=== PATIENT | male | born 1955 | race Caucasian/White ===

== ENCOUNTER 2022-10-31 22:29 | Emergency (ER) | payer OTHER, MEDICAID ==
[~2022-10-31] VITALS: Ht 167.6 cm; Wt 81.6 kg
[2022-10-31 22:51] VITALS: BP_SYST 130
--- NOTE | 2022-10-31 22:51 | NUR ---
Placed in room 07 . Placed on groundwater monitoring technician, blood pressure machine and pulse oximeter. To gown for exam. Side rails up. Report given to Dona MURRELL.
--- NOTE | 2022-10-31 22:52 | NUR ---
DR MELENDEZ AT BEDSIDE FOR EVALUATION
--- NOTE | 2022-10-31 22:55 | NUR ---
LABS DRAWN BY HEAVY DUTY MECHANIC
[2022-10-31 23:08] LABS: BASOPHILS # (AUTO) 0.1 K/uL (0.0-0.2); BASOPHILS % (AUTO) 0.6 % (0.0-2.0); EOSINOPHILS # (AUTO) 0.6 K/uL (0.0-0.4); EOSINOPHILS % (AUTO) 5.9 % (0.0-4.0); HEMATOCRIT 36.1 % (36-54); HEMOGLOBIN 11.9 g/dL (14.0-18.0); LYMPHOCYTES # (AUTO) 2.2 K/uL (1.0-5.5); LYMPHOCYTES % (AUTO) 22.2 % (20.5-51.5); MEAN CORPUSCULAR HEMOGLOBIN 31 pg (27-31); MEAN CORPUSCULAR HGB CONC 33 % (32-36); MEAN CORPUSCULAR VOLUME 94 fL (79.0-98.0); MONOCYTES # (AUTO) 0.8 K/uL (0.0-1.0); MONOCYTES % (AUTO) 8.1 % (1.7-9.3); NEUTROPHILS # (AUTO) 6.3 K/uL (1.8-7.7); NEUTROPHILS % (AUTO) 63.2 % (40.0-70.0); PLATELET COUNT (AUTO) 168 K/uL (130-430); RED BLOOD CELL COUNT(AUTO) 3.83 MIL/uL (4.2-6.2); RED CELL DISTRIBUTION WIDTH 18.1 % (9.0-15.0)
[2022-10-31 23:23] LABS: CALCIUM 9.7 mg/dL (8.4-11.0); CREATININE 0.88 mg/dL (0.55-1.30)
[2022-10-31 23:29] LABS: ALBUMIN 2.9 g/dL (3.4-4.8); PHOSPHORUS 4.6 mg/dL (2.7-4.5); TOTAL BILIRUBIN 0.7 mg/dL (0.0-1.0)
--- NOTE | 2022-10-31 23:30 | NUR ---
PT HERE FOR RE-CHECK OF HIS POTASSIUM LEVEL.
--- NOTE | 2022-11-01 02:33 | NUR ---
REPORT GIVEN TO LI AT [facility]
--- NOTE | 2022-11-01 03:34 | NUR ---
Patient given written and verbal discharge instructions and verbalizes understanding. ER MD discussed with patient the results and treatment provided. Patient in stable condition. ID arm band removed. Rx of Omeprazole given. Patient educated on pain management and to follow up with PMD. Pain Scale 2/10. Opportunity for questions provided and answered. Medication side effect fact sheet provided.
[2022-11-01 04:27] VITALS: BP_SYST 155
== END 2022-11-01 03:34 ==
LOC: SED 22:29
DX: R79.9 Abnormal finding of blood chemistry, unspecified (principal); F72 Severe intellectual disabilities; I11.0 Hypertensive heart disease with heart failure; I50.9 Heart failure, unspecified; K21.9 Gastro-esophageal reflux disease without esophagitis; E83.42 Hypomagnesemia; E83.39 Other disorders of phosphorus metabolism; E87.1 Hypo-osmolality and hyponatremia; Z93.0 Tracheostomy status; Z79.899 Other long term (current) drug therapy
CPT/HCPCS: 36415; 80053; 83735; 84100; 85025; 99283

== ENCOUNTER 2022-11-12 00:46 | Inpatient (IN) | payer OTHER, MEDICAID ==
[2022-11-12] VITALS (22 sets, daily range): BP systolic 81–128
[~2022-11-12] VITALS: Ht 167.6 cm; Wt 81.6 kg
[2022-11-12] MEDS ORDERED: NS 1000 ML IV.SOLN IV ONE (01:00)
[2022-11-12] MEDS ORDERED: PIPERACILLIN/TAZOBACTAM 3.375 GM/VIAL (ZOSYN) IV ONE ×2 (01:10→05:15)
[2022-11-12] MEDS ORDERED: VANCOMYCIN HCL 1,000 MG in NS 250 ML IV SCH ×2 (01:15→11:00)
[2022-11-12] MEDS ORDERED: PIPERACILLIN/TAZO 3.375 GM in NS 50 ML IV ONE (01:15)
[2022-11-12] MEDS ORDERED: VANCOMYCIN HCL 1000 MG/VIAL IV ONE (01:25)
[2022-11-12 01:28] LABS: BILIRUBIN,URINE NEGATIVE (NEGATIVE); BLOOD, URINE 3+ (NEGATIVE); CLARITY/URINE SL CLOUDY (CLEAR); COLOR,URINE YELLOW (YELLOW); GLUCOSE,URINE NEGATIVE (NEGATIVE); KETONES,URINE NEGATIVE (NEGATIVE); LEUKOCYTE ESTERASE ,URINE 2+ (NEGATIVE); NITRITE, URINE NEGATIVE (NEGATIVE); PH,URINE 8.5 (5.0-8.0); PROTEIN URINE 1+ (NEGATIVE); UROBILINOGEN,URINE 0.2 (0.2-1.0)
[2022-11-12 01:32] LABS: BASOPHILS % (AUTO) 0.2 % (0.0-2.0); EOSINOPHILS # (AUTO) 0.5 K/uL (0.0-0.4); EOSINOPHILS % (AUTO) 3.5 % (0.0-4.0); HEMATOCRIT 36.4 % (36-54); HEMOGLOBIN 11.8 g/dL (14.0-18.0); LYMPHOCYTES # (AUTO) 0.5 K/uL (1.0-5.5); MEAN CORPUSCULAR HEMOGLOBIN 30 pg (27-31); MEAN CORPUSCULAR HGB CONC 33 % (32-36); MEAN CORPUSCULAR VOLUME 91 fL (79.0-98.0); MONOCYTES # (AUTO) 0.1 K/uL (0.0-1.0); MONOCYTES % (AUTO) 0.6 % (1.7-9.3); NEUTROPHILS # (AUTO) 11.7 K/uL (1.8-7.7); NEUTROPHILS % (AUTO) 91.7 % (40.0-70.0); PLATELET COUNT (AUTO) 259 K/uL (130-430); RED CELL DISTRIBUTION WIDTH 17.1 % (9.0-15.0); WHITE BLOOD COUNT (AUTO) 12.8 K/uL (4.8-10.8)
[2022-11-12 01:42] LABS: ANION GAP 13 (5-15); CALCIUM 10.1 mg/dL (8.4-11.0); CHLORIDE 99 mmol/L (98-107); CREATININE 0.83 mg/dL (0.55-1.30); GLUCOSE 167 mg/dL (70-99); UREA NITROGEN, BLOOD 31 mg/dL (8-21)
[2022-11-12 01:43] LABS: BACTERIA,URINE MANY /HPF (None Seen); RBC,URINE 80-100 /HPF (0-3); TRIPLE PHOSPHATE CRYSTAL,UR 0-10 /HPF (None Seen)
[2022-11-12 01:46] LABS: GFR AFRICAN AMERICAN 120 mL/min (>90)
[2022-11-12 01:48] LABS: ALANINE AMINOTRANSFERASE 112 U/L (12-78); ALBUMIN 2.9 g/dL (3.4-4.8); ASPARTATE AMINOTRANSFERASE 170 U/L (10-37); TOTAL BILIRUBIN 0.7 mg/dL (0.0-1.0)
[2022-11-12] MEDS ORDERED: NS 250 ML IV ONE (02:15)
[2022-11-12] MEDS ORDERED: dilTIAZem HCL IVP 5 MG/ML VIAL IVP ONE (02:15)
[2022-11-12] MEDS ORDERED: dilTIAZem HCL IVP 5 MG/ML VIAL ONE (02:19)
[2022-11-12] MEDS ORDERED: ARGI1POW13 GT (02:43)
[2022-11-12] MEDS ORDERED: RIVA10TA GT (02:43)
[2022-11-12] MEDS ORDERED: FAMO20TA8 GT (02:43)
[2022-11-12] MEDS ORDERED: ALBU2.5V7 INH (02:43)
[2022-11-12] MEDS ORDERED: MULT-1117 GT (02:43)
[2022-11-12] MEDS ORDERED: LIP20 GT (02:43)
[2022-11-12] MEDS ORDERED: CHLO473M5 PO (02:43)
[2022-11-12] MEDS ORDERED: LISI20TA30 GT (02:43)
[2022-11-12] MEDS ORDERED: ERGO50CA GT (02:43)
[2022-11-12] MEDS ORDERED: TYLL650 GT (02:43)
[2022-11-12] MEDS ORDERED: INSU100V7 SUBCUT (02:43)
[2022-11-12] MEDS ORDERED: INSU100V11 SQ (02:43)
[2022-11-12] MEDS ORDERED: METO-290 GT (02:43)
[2022-11-12] MEDS ORDERED: MIDO10TA GT (02:43)
[2022-11-12] MEDS ORDERED: CRAN450T9 GT (02:43)
[2022-11-12] MEDS ORDERED: ASCO500S10 GT (02:43)
[2022-11-12] MEDS ORDERED: DOCU-144 GT (02:43)
[2022-11-12] MEDS ORDERED: FER300L GT (02:43)
[2022-11-12] MEDS ORDERED: LEVE1000 PO (02:43)
[2022-11-12] MEDS ORDERED: LANS30CA53 GT (02:43)
[2022-11-12] MEDS ORDERED: BISA-79 RC (02:43)
[2022-11-12] MEDS ORDERED: LEVE1000 GT (02:43)
[2022-11-12] MEDS ORDERED: NOREPINEPHRINE 4 MG/4 ML VIAL IV ONE ×2 (04:51→07:42)
[2022-11-12] MEDS ORDERED: PIPERACILLIN/TAZO 3.375/DEX-IS 50 ML IV SCH (06:00)
[2022-11-12] MEDS: NACL 0.9% 1,000 ML IV SCH ×3 (06:13→18:50)
[2022-11-12] MEDS: NOREPINEPHRINE BITARTRATE 4 MG in NS 246 ML IV PRN ×2 (06:19→12:48)
[2022-11-12] MEDS ORDERED: COMMUNICATION ORDER XX ONE (08:15)
[2022-11-12] MEDS: ACETAMINOPHEN 650 MG/20.3 ML UDC GT PRN ×2 (09:09→14:32)
[2022-11-12] MEDS ORDERED: LINEZOLID 300 ML IV ONE (10:15)
[2022-11-12] MEDS ORDERED: DIGOXIN 0.5 MG/2 ML AMP IVP ONE (11:00)
[2022-11-12] MEDS ORDERED: DIGOXIN 0.5 MG/2 ML AMP ONE (11:02)
[2022-11-12] MEDS ORDERED: BISACODYL 5 MG TABLET.DR (DULCOLAX) GT PRN (13:15)
[2022-11-12] MEDS ORDERED: ACETAMINOPHEN 650 MG/20.3 ML UDC GT SCH (13:15)
[2022-11-12] MEDS ORDERED: NOREPINEPHRINE BITARTRATE 8 MG in NS 246 ML IV PRN (13:15)
[2022-11-12] MEDS ORDERED: DOCUSATE SODIUM 100 MG CAPSULE PO PRN (13:15)
[2022-11-12] MEDS ORDERED: ALBUTEROL SULFATE 0.083% 2.5 MG/3 ML VIAL.NEB INH PRN (13:15)
[2022-11-12] MEDS: METOCLOPRAMIDE HCL 10 MG TABLET GT SCH ×2 (14:33→21:05)
[2022-11-12] MEDS: MEROPENEM 1 GM IVPB PREMIX 50 ML IV SCH ×2 (14:52→22:03)
[2022-11-12] MEDS ORDERED: DIGOXIN 0.5 MG/2 ML AMP IVP PRN (15:00)
[2022-11-12] MEDS: MIDODRINE HCL 5 MG TABLET (PROAMATINE) GT SCH ×2 (15:13→21:05)
[2022-11-12 15:21] LABS: INR 1.3 (0.80-1.20); PROTHROMBIN TIME 12.8 SECS (9.5-12.5)
[2022-11-12] MEDS: ALBUMIN HUMAN 25% 50 ML IV SCH ×2 (17:06→21:07)
[2022-11-12] MEDS ORDERED: NON-FORMULARY MEDICATION (Arginine/Ascorbate Sod/Vite AC (Arginaid Powder) 1 EACH) GT SCH (21:00)
[2022-11-12] MEDS ORDERED: NON-FORMULARY MEDICATION (Cranberry Fruit (Cranberry) 425 MG) GT SCH (21:00)
[2022-11-12] MEDS: INSULIN GLARGINE 100 UNITS/ML, 10 ML VIAL SUBCUT SCH (21:00)
[2022-11-12] MEDS: levETIRAcetam 500 MG TABLET GT SCH (21:05)
[2022-11-12] MEDS: FERROUS SULFATE 300 MG/5 ML UDC GT SCH (21:06)
[2022-11-12] MEDS: ATORVASTATIN 20 MG TABLET GT SCH (21:06)
[2022-11-12] MEDS: HYDROCORTISONE SOD SUCC 100 MG/2 ML VIAL IVP SCH (21:06)
[2022-11-12] MEDS: CHLORHEXIDINE GLUC 0.12% 15 ML MOUTHWASH UDC MM SCH (21:06)
[2022-11-12] MEDS: FAMOTIDINE 20 MG TABLET GT SCH (21:06)
[2022-11-12] MEDS: LINEZOLID 300 ML IV SCH (21:08)
[2022-11-13] VITALS (27 sets, daily range): BP systolic 90–135
[2022-11-13] MEDS: ALBUMIN HUMAN 25% 50 ML IV SCH (03:11)
[2022-11-13] MEDS: NACL 0.9% 1,000 ML IV SCH ×3 (03:11→15:18)
[2022-11-13] MEDS: HYDROCORTISONE SOD SUCC 100 MG/2 ML VIAL IVP SCH ×3 (05:16→21:33)
[2022-11-13] MEDS: MEROPENEM 1 GM IVPB PREMIX 50 ML IV SCH ×3 (05:16→22:00)
[2022-11-13] MEDS: METOCLOPRAMIDE HCL 10 MG TABLET GT SCH ×3 (05:16→21:33)
[2022-11-13 05:52] LABS: BASOPHILS % (AUTO) 0.1 % (0.0-2.0); EOSINOPHILS # (AUTO) 0.1 K/uL (0.0-0.4); EOSINOPHILS % (AUTO) 0.6 % (0.0-4.0); HEMATOCRIT 28.4 % (36-54); HEMOGLOBIN 9.1 g/dL (14.0-18.0); LYMPHOCYTES # (AUTO) 1.6 K/uL (1.0-5.5); LYMPHOCYTES % (AUTO) 7.3 % (20.5-51.5); MEAN CORPUSCULAR HEMOGLOBIN 30 pg (27-31); MEAN CORPUSCULAR HGB CONC 32 % (32-36); MEAN CORPUSCULAR VOLUME 92 fL (79.0-98.0); MONOCYTES # (AUTO) 0.6 K/uL (0.0-1.0); MONOCYTES % (AUTO) 2.8 % (1.7-9.3); NEUTROPHILS # (AUTO) 19.8 K/uL (1.8-7.7); NEUTROPHILS % (AUTO) 89.2 % (40.0-70.0); PLATELET COUNT (AUTO) 136 K/uL (130-430); RED BLOOD CELL COUNT(AUTO) 3.08 MIL/uL (4.2-6.2); RED CELL DISTRIBUTION WIDTH 16.8 % (9.0-15.0); WHITE BLOOD COUNT (AUTO) 22.3 K/uL (4.8-10.8)
[2022-11-13 06:03] LABS: CALCIUM 8.6 mg/dL (8.4-11.0); CREATININE 0.46 mg/dL (0.55-1.30)
[2022-11-13] MEDS: FERROUS SULFATE 300 MG/5 ML UDC GT SCH ×2 (08:57→21:32)
[2022-11-13] MEDS ORDERED: ASCORBIC ACID 500 MG GT SCH (09:00)
[2022-11-13] MEDS: levETIRAcetam 500 MG TABLET GT SCH ×2 (09:01→21:33)
[2022-11-13] MEDS: MULTIVITAMINS TAB 1 TABLET GT SCH (09:10)
[2022-11-13] MEDS: FAMOTIDINE 20 MG TABLET GT SCH ×2 (09:11→21:33)
[2022-11-13] MEDS: MIDODRINE HCL 5 MG TABLET (PROAMATINE) GT SCH ×3 (09:12→21:33)
[2022-11-13] MEDS: ASCORBIC ACID 500 MG TABLET GT SCH (09:12)
[2022-11-13] MEDS: RIVAROXABAN 10 MG TABLET GT SCH (09:13)
[2022-11-13] MEDS: LINEZOLID 300 ML IV SCH ×2 (09:14→21:34)
[2022-11-13] MEDS: CHLORHEXIDINE GLUC 0.12% 15 ML MOUTHWASH UDC MM SCH ×2 (09:14→21:42)
[2022-11-13] MEDS: INSULIN REGULAR, HUMAN 100 UNITS/ML, 3 ML VIAL (humuLIN R) SUBCUT PRN (12:19)
[2022-11-13] MEDS: INSULIN GLARGINE 100 UNITS/ML, 10 ML VIAL SUBCUT SCH (21:40)
[2022-11-13] MEDS: ATORVASTATIN 20 MG TABLET GT SCH (21:42)
[2022-11-14] VITALS (23 sets, daily range): BP systolic 94–144
[2022-11-14] MEDS: INSULIN REGULAR, HUMAN 100 UNITS/ML, 3 ML VIAL (humuLIN R) SUBCUT PRN ×3 (02:37→23:43)
[2022-11-14] MEDS: NACL 0.9% 1,000 ML IV SCH ×3 (02:42→20:25)
[2022-11-14] MEDS: METOCLOPRAMIDE HCL 10 MG TABLET GT SCH ×3 (06:00→22:24)
[2022-11-14] MEDS: MEROPENEM 1 GM IVPB PREMIX 50 ML IV SCH ×3 (06:00→22:24)
[2022-11-14] MEDS: HYDROCORTISONE SOD SUCC 100 MG/2 ML VIAL IVP SCH ×2 (06:00→22:25)
[2022-11-14 06:48] LABS: BASOPHILS % (AUTO) 0.2 % (0.0-2.0); HEMATOCRIT 30.5 % (36-54); HEMOGLOBIN 9.8 g/dL (14.0-18.0); LYMPHOCYTES # (AUTO) 1.4 K/uL (1.0-5.5); LYMPHOCYTES % (AUTO) 4.9 % (20.5-51.5); MEAN CORPUSCULAR HEMOGLOBIN 30 pg (27-31); MEAN CORPUSCULAR HGB CONC 32 % (32-36); MEAN CORPUSCULAR VOLUME 93 fL (79.0-98.0); MONOCYTES # (AUTO) 0.6 K/uL (0.0-1.0); MONOCYTES % (AUTO) 2.2 % (1.7-9.3); NEUTROPHILS # (AUTO) 26.3 K/uL (1.8-7.7); NEUTROPHILS % (AUTO) 92.7 % (40.0-70.0); PLATELET COUNT (AUTO) 138 K/uL (130-430); RED CELL DISTRIBUTION WIDTH 16.6 % (9.0-15.0); WHITE BLOOD COUNT (AUTO) 28.4 K/uL (4.8-10.8)
[2022-11-14 07:54] LABS: ALBUMIN 2.2 g/dL (3.4-4.8); CALCIUM 8.6 mg/dL (8.4-11.0); CREATININE 0.49 mg/dL (0.55-1.30); TOTAL BILIRUBIN 0.5 mg/dL (0.0-1.0)
[2022-11-14] MEDS: levETIRAcetam 500 MG TABLET GT SCH ×2 (09:53→20:32)
[2022-11-14] MEDS: MULTIVITAMINS TAB 1 TABLET GT SCH (09:53)
[2022-11-14] MEDS: FERROUS SULFATE 300 MG/5 ML UDC GT SCH ×2 (09:53→20:32)
[2022-11-14] MEDS: MIDODRINE HCL 5 MG TABLET (PROAMATINE) GT SCH ×3 (09:54→20:32)
[2022-11-14] MEDS: ASCORBIC ACID 500 MG TABLET GT SCH (09:54)
[2022-11-14] MEDS: FAMOTIDINE 20 MG TABLET GT SCH ×2 (09:54→20:31)
[2022-11-14] MEDS: CHLORHEXIDINE GLUC 0.12% 15 ML MOUTHWASH UDC MM SCH ×2 (09:56→20:32)
[2022-11-14] MEDS: LINEZOLID 300 ML IV SCH ×2 (09:56→20:35)
[2022-11-14] MEDS: RIVAROXABAN 10 MG TABLET GT SCH (09:57)
[2022-11-14 17:28] LABS: DIGOXIN 0.4 ng/mL (0.80-2.00)
[2022-11-14] MEDS: ATORVASTATIN 20 MG TABLET GT SCH (20:36)
[2022-11-14] MEDS: INSULIN GLARGINE 100 UNITS/ML, 10 ML VIAL SUBCUT SCH ×2 (21:00→23:50)
[2022-11-15] VITALS (9 sets, daily range): BP systolic 120–130
[2022-11-15] MEDS: METOCLOPRAMIDE HCL 10 MG TABLET GT SCH ×3 (06:14→21:15)
[2022-11-15] MEDS: MEROPENEM 1 GM IVPB PREMIX 50 ML IV SCH ×3 (06:15→22:59)
[2022-11-15 06:24] LABS: BASOPHILS % (AUTO) 0.1 % (0.0-2.0); HEMATOCRIT 29.2 % (36-54); HEMOGLOBIN 9.5 g/dL (14.0-18.0); LYMPHOCYTES # (AUTO) 1.4 K/uL (1.0-5.5); MEAN CORPUSCULAR HEMOGLOBIN 30 pg (27-31); MEAN CORPUSCULAR HGB CONC 33 % (32-36); MEAN CORPUSCULAR VOLUME 92 fL (79.0-98.0); MONOCYTES # (AUTO) 0.3 K/uL (0.0-1.0); MONOCYTES % (AUTO) 1.6 % (1.7-9.3); NEUTROPHILS # (AUTO) 15.5 K/uL (1.8-7.7); NEUTROPHILS % (AUTO) 90.3 % (40.0-70.0); PLATELET COUNT (AUTO) 131 K/uL (130-430); RED BLOOD CELL COUNT(AUTO) 3.16 MIL/uL (4.2-6.2); RED CELL DISTRIBUTION WIDTH 16.8 % (9.0-15.0); WHITE BLOOD COUNT (AUTO) 17.2 K/uL (4.8-10.8)
[2022-11-15] MEDS: NACL 0.9% 1,000 ML IV SCH ×2 (06:25→16:20)
[2022-11-15 07:24] LABS: CALCIUM 8.4 mg/dL (8.4-11.0); CREATININE 0.39 mg/dL (0.55-1.30)
[2022-11-15] MEDS: MULTIVITAMINS TAB 1 TABLET GT SCH (09:05)
[2022-11-15] MEDS: FAMOTIDINE 20 MG TABLET GT SCH ×2 (09:05→21:13)
[2022-11-15] MEDS: FERROUS SULFATE 300 MG/5 ML UDC GT SCH ×2 (09:05→21:13)
[2022-11-15] MEDS: HYDROCORTISONE SOD SUCC 100 MG/2 ML VIAL IVP SCH ×2 (09:05→21:12)
[2022-11-15] MEDS: ASCORBIC ACID 500 MG TABLET GT SCH (09:05)
[2022-11-15] MEDS: levETIRAcetam 500 MG TABLET GT SCH ×2 (09:05→21:13)
[2022-11-15] MEDS: LINEZOLID 300 ML IV SCH ×2 (09:06→21:12)
[2022-11-15] MEDS: CHLORHEXIDINE GLUC 0.12% 15 ML MOUTHWASH UDC MM SCH ×2 (09:06→21:13)
[2022-11-15] MEDS: MIDODRINE HCL 5 MG TABLET (PROAMATINE) GT SCH ×3 (09:07→21:13)
[2022-11-15] MEDS: RIVAROXABAN 10 MG TABLET GT SCH (09:08)
[2022-11-15] MEDS: POTASSIUM CHLORIDE 20 MEQ TAB.PRT.SR PO SCH ×3 (11:20→21:13)
[2022-11-15] MEDS: INSULIN REGULAR, HUMAN 100 UNITS/ML, 3 ML VIAL (humuLIN R) SUBCUT PRN ×3 (12:27→23:02)
[2022-11-15] MEDS: ATORVASTATIN 20 MG TABLET GT SCH (21:13)
[2022-11-15] MEDS: INSULIN GLARGINE 100 UNITS/ML, 10 ML VIAL SUBCUT SCH (21:15)
[2022-11-16 00:34] VITALS: BP_SYST 139
[2022-11-16] MEDS: NACL 0.9% 1,000 ML IV SCH ×3 (02:25→17:04)
[2022-11-16] MEDS: METOCLOPRAMIDE HCL 10 MG TABLET GT SCH ×3 (05:12→21:15)
[2022-11-16] MEDS: MEROPENEM 1 GM IVPB PREMIX 50 ML IV SCH (05:13)
[2022-11-16 07:22] LABS: BASOPHILS % (AUTO) 0.5 % (0.0-2.0); EOSINOPHILS # (AUTO) 0.1 K/uL (0.0-0.4); EOSINOPHILS % (AUTO) 0.9 % (0.0-4.0); HEMATOCRIT 30.7 % (36-54); LYMPHOCYTES # (AUTO) 2.2 K/uL (1.0-5.5); LYMPHOCYTES % (AUTO) 22.8 % (20.5-51.5); MEAN CORPUSCULAR HEMOGLOBIN 30 pg (27-31); MEAN CORPUSCULAR HGB CONC 33 % (32-36); MEAN CORPUSCULAR VOLUME 93 fL (79.0-98.0); MONOCYTES # (AUTO) 0.4 K/uL (0.0-1.0); NEUTROPHILS # (AUTO) 6.9 K/uL (1.8-7.7); NEUTROPHILS % (AUTO) 71.8 % (40.0-70.0); PLATELET COUNT (AUTO) 107 K/uL (130-430); RED BLOOD CELL COUNT(AUTO) 3.32 MIL/uL (4.2-6.2); RED CELL DISTRIBUTION WIDTH 17.1 % (9.0-15.0); WHITE BLOOD COUNT (AUTO) 9.6 K/uL (4.8-10.8)
[2022-11-16 07:53] LABS: CALCIUM 8.3 mg/dL (8.4-11.0); CREATININE 0.49 mg/dL (0.55-1.30)
[2022-11-16] MEDS: MIDODRINE HCL 5 MG TABLET (PROAMATINE) GT SCH ×3 (09:00→21:15)
[2022-11-16] MEDS: FERROUS SULFATE 300 MG/5 ML UDC GT SCH ×2 (09:16→21:14)
[2022-11-16] MEDS: CHLORHEXIDINE GLUC 0.12% 15 ML MOUTHWASH UDC MM SCH ×2 (09:17→21:00)
[2022-11-16] MEDS: levETIRAcetam 500 MG TABLET GT SCH ×2 (09:17→21:15)
[2022-11-16] MEDS: POTASSIUM CHLORIDE 20 MEQ TAB.PRT.SR PO SCH ×3 (09:17→21:15)
[2022-11-16] MEDS: MULTIVITAMINS TAB 1 TABLET GT SCH (09:17)
[2022-11-16] MEDS: FAMOTIDINE 20 MG TABLET GT SCH ×2 (09:17→21:15)
[2022-11-16] MEDS: HYDROCORTISONE SOD SUCC 100 MG/2 ML VIAL IVP SCH ×2 (09:17→21:14)
[2022-11-16] MEDS: LINEZOLID 300 ML IV SCH (09:18)
[2022-11-16] MEDS: ASCORBIC ACID 500 MG TABLET GT SCH (09:18)
[2022-11-16] MEDS: RIVAROXABAN 10 MG TABLET GT SCH (09:21)
[2022-11-16] MEDS: INSULIN REGULAR, HUMAN 100 UNITS/ML, 3 ML VIAL (humuLIN R) SUBCUT PRN ×2 (11:31→17:02)
[2022-11-16 12:12] VITALS: BP_SYST 127
[2022-11-16 15:57] VITALS: BP_SYST 121
[2022-11-16] MEDS: AMIKACIN SULFATE 500 MG in D5W 100 ML IV SCH ×2 (16:37→23:06)
[2022-11-16 20:00] VITALS: BP_SYST 98
[2022-11-16] MEDS: ATORVASTATIN 20 MG TABLET GT SCH (21:15)
[2022-11-16] MEDS: ACETAMINOPHEN 650 MG/20.3 ML UDC GT PRN (21:17)
[2022-11-16] MEDS: INSULIN GLARGINE 100 UNITS/ML, 10 ML VIAL SUBCUT SCH (23:03)
[2022-11-17] VITALS: BP_SYST 106
[2022-11-17] MEDS: METOCLOPRAMIDE HCL 10 MG TABLET GT SCH ×3 (05:49→21:12)
[2022-11-17] MEDS: NACL 0.9% 1,000 ML IV SCH ×3 (05:50→21:14)
[2022-11-17] MEDS: AMIKACIN SULFATE 500 MG in D5W 100 ML IV SCH ×2 (08:31→17:17)
[2022-11-17] MEDS: MIDODRINE HCL 5 MG TABLET (PROAMATINE) GT SCH ×3 (09:00→21:00)
[2022-11-17 09:30] VITALS: BP_SYST 122
[2022-11-17] MEDS: FERROUS SULFATE 300 MG/5 ML UDC GT SCH ×2 (09:32→21:12)
[2022-11-17] MEDS: HYDROCORTISONE SOD SUCC 100 MG/2 ML VIAL IVP SCH ×2 (09:33→21:13)
[2022-11-17] MEDS: levETIRAcetam 500 MG TABLET GT SCH ×2 (09:33→21:12)
[2022-11-17] MEDS: POTASSIUM CHLORIDE 20 MEQ TAB.PRT.SR PO SCH ×3 (09:33→21:12)
[2022-11-17] MEDS: FAMOTIDINE 20 MG TABLET GT SCH ×2 (09:33→21:12)
[2022-11-17] MEDS: MULTIVITAMINS TAB 1 TABLET GT SCH (09:33)
[2022-11-17] MEDS: RIVAROXABAN 10 MG TABLET GT SCH (09:34)
[2022-11-17] MEDS: ASCORBIC ACID 500 MG TABLET GT SCH (09:34)
[2022-11-17] MEDS: CHLORHEXIDINE GLUC 0.12% 15 ML MOUTHWASH UDC MM SCH ×2 (12:09→21:11)
[2022-11-17 12:49] VITALS: BP_SYST 111
[2022-11-17 17:20] VITALS: BP_SYST 145
[2022-11-17 19:21] VITALS: BP_SYST 126
[2022-11-17 20:15] VITALS: BP_SYST 150
[2022-11-17] MEDS: ATORVASTATIN 20 MG TABLET GT SCH (21:12)
[2022-11-17] MEDS: ACETAMINOPHEN 650 MG/20.3 ML UDC GT PRN (21:13)
[2022-11-18] MEDS: AMIKACIN SULFATE 500 MG in D5W 100 ML IV SCH ×4 (00:10→23:56)
[2022-11-18] MEDS: INSULIN GLARGINE 100 UNITS/ML, 10 ML VIAL SUBCUT SCH (00:11)
[2022-11-18 00:44] VITALS: BP_SYST 145
[2022-11-18] MEDS: NACL 0.9% 1,000 ML IV SCH (06:25)
[2022-11-18] MEDS: METOCLOPRAMIDE HCL 10 MG TABLET GT SCH ×3 (06:26→21:35)
[2022-11-18 08:00] VITALS: BP_SYST 131
[2022-11-18] MEDS: HYDROCORTISONE SOD SUCC 100 MG/2 ML VIAL IVP SCH ×2 (08:28→21:33)
[2022-11-18] MEDS: ASCORBIC ACID 500 MG TABLET GT SCH (08:31)
[2022-11-18] MEDS: MIDODRINE HCL 5 MG TABLET (PROAMATINE) GT SCH ×4 (08:31→21:35)
[2022-11-18] MEDS: MULTIVITAMINS TAB 1 TABLET GT SCH (08:31)
[2022-11-18] MEDS: FERROUS SULFATE 300 MG/5 ML UDC GT SCH ×2 (08:31→21:34)
[2022-11-18] MEDS: POTASSIUM CHLORIDE 20 MEQ TAB.PRT.SR PO SCH ×3 (08:32→21:34)
[2022-11-18] MEDS: FAMOTIDINE 20 MG TABLET GT SCH ×2 (08:33→21:35)
[2022-11-18] MEDS: levETIRAcetam 500 MG TABLET GT SCH ×2 (08:33→21:34)
[2022-11-18] MEDS: RIVAROXABAN 10 MG TABLET GT SCH (08:57)
[2022-11-18] MEDS: CHLORHEXIDINE GLUC 0.12% 15 ML MOUTHWASH UDC MM SCH ×2 (08:58→21:38)
[2022-11-18] MEDS ORDERED: ERGOCALCIFEROL GT SCH (09:00)
[2022-11-18] MEDS ORDERED: ERGOCALCIFEROL 8000 UNITS/ML ORAL SOLUTION, 60 ML BOTTLE GT SCH (09:00)
[2022-11-18 11:23] VITALS: BP_SYST 130
[2022-11-18] MEDS: ALBUTEROL SULFATE 0.083% 2.5 MG/3 ML VIAL.NEB INH SCH ×3 (15:36→22:55)
[2022-11-18] MEDS: IPRATROPIUM BROM 0.5 MG/2.5 ML VIAL.NEB (ATROVENT) INH SCH ×3 (15:36→22:55)
[2022-11-18 16:42] VITALS: BP_SYST 124
[2022-11-18] MEDS: ACETYLCYSTEINE 20% 4 ML VIAL (RT) INH SCH ×2 (19:55→22:55)
[2022-11-18 20:10] VITALS: BP_SYST 127
[2022-11-18] MEDS: ATORVASTATIN 20 MG TABLET GT SCH (21:34)
[2022-11-19] MEDS: INSULIN GLARGINE 100 UNITS/ML, 10 ML VIAL SUBCUT SCH
[2022-11-19 00:54] VITALS: BP_SYST 143
[2022-11-19] MEDS: ALBUTEROL SULFATE 0.083% 2.5 MG/3 ML VIAL.NEB INH SCH ×6 (03:20→23:50)
[2022-11-19] MEDS: ACETYLCYSTEINE 20% 4 ML VIAL (RT) INH SCH ×5 (03:20→20:28)
[2022-11-19] MEDS: IPRATROPIUM BROM 0.5 MG/2.5 ML VIAL.NEB (ATROVENT) INH SCH ×6 (03:21→23:50)
[2022-11-19] MEDS: NACL 0.9% 1,000 ML IV SCH ×3 (05:49→20:25)
[2022-11-19] MEDS: METOCLOPRAMIDE HCL 10 MG TABLET GT SCH ×3 (05:50→22:16)
[2022-11-19 08:00] VITALS: BP_SYST 138
[2022-11-19 08:00] LABS: BASOPHILS % (AUTO) 0.4 % (0.0-2.0); EOSINOPHILS # (AUTO) 0.1 K/uL (0.0-0.4); EOSINOPHILS % (AUTO) 0.7 % (0.0-4.0); HEMATOCRIT 28.1 % (36-54); HEMOGLOBIN 9.3 g/dL (14.0-18.0); LYMPHOCYTES % (AUTO) 23.6 % (20.5-51.5); MEAN CORPUSCULAR HEMOGLOBIN 30 pg (27-31); MEAN CORPUSCULAR HGB CONC 33 % (32-36); MEAN CORPUSCULAR VOLUME 92 fL (79.0-98.0); MONOCYTES # (AUTO) 0.9 K/uL (0.0-1.0); MONOCYTES % (AUTO) 10.1 % (1.7-9.3); NEUTROPHILS # (AUTO) 5.5 K/uL (1.8-7.7); NEUTROPHILS % (AUTO) 65.2 % (40.0-70.0); PLATELET COUNT (AUTO) 186 K/uL (130-430); RED BLOOD CELL COUNT(AUTO) 3.07 MIL/uL (4.2-6.2); RED CELL DISTRIBUTION WIDTH 17.2 % (9.0-15.0); WHITE BLOOD COUNT (AUTO) 8.4 K/uL (4.8-10.8)
[2022-11-19] MEDS: MIDODRINE HCL 5 MG TABLET (PROAMATINE) GT SCH ×3 (08:38→22:16)
[2022-11-19] MEDS: FERROUS SULFATE 300 MG/5 ML UDC GT SCH ×2 (08:38→22:15)
[2022-11-19] MEDS: ASCORBIC ACID 500 MG TABLET GT SCH (08:38)
[2022-11-19] MEDS: HYDROCORTISONE SOD SUCC 100 MG/2 ML VIAL IVP SCH ×2 (08:38→22:15)
[2022-11-19] MEDS: levETIRAcetam 500 MG TABLET GT SCH ×2 (08:39→22:15)
[2022-11-19] MEDS: POTASSIUM CHLORIDE 20 MEQ TAB.PRT.SR PO SCH ×3 (08:39→22:15)
[2022-11-19] MEDS: MULTIVITAMINS TAB 1 TABLET GT SCH (08:39)
[2022-11-19] MEDS: FAMOTIDINE 20 MG TABLET GT SCH ×2 (08:39→22:15)
[2022-11-19] MEDS: RIVAROXABAN 10 MG TABLET GT SCH (08:41)
[2022-11-19] MEDS: AMIKACIN SULFATE 500 MG in D5W 100 ML IV SCH ×2 (08:44→17:46)
[2022-11-19] MEDS: CHLORHEXIDINE GLUC 0.12% 15 ML MOUTHWASH UDC MM SCH ×2 (09:00→21:00)
[2022-11-19 13:07] VITALS: BP_SYST 138
[2022-11-19 16:40] VITALS: BP_SYST 147
[2022-11-19 20:35] VITALS: BP_SYST 136
[2022-11-19] MEDS: ATORVASTATIN 20 MG TABLET GT SCH (22:15)
[2022-11-20] MEDS: ACETYLCYSTEINE 20% 4 ML VIAL (RT) INH SCH ×4 (00:02→11:13)
[2022-11-20] MEDS: AMIKACIN SULFATE 500 MG in D5W 100 ML IV SCH ×2 (00:05→09:12)
[2022-11-20] MEDS: INSULIN GLARGINE 100 UNITS/ML, 10 ML VIAL SUBCUT SCH (00:13)
[2022-11-20 01:47] VITALS: BP_SYST 144
[2022-11-20] MEDS: IPRATROPIUM BROM 0.5 MG/2.5 ML VIAL.NEB (ATROVENT) INH SCH ×3 (03:37→11:13)
[2022-11-20] MEDS: ALBUTEROL SULFATE 0.083% 2.5 MG/3 ML VIAL.NEB INH SCH ×3 (03:37→11:13)
[2022-11-20] MEDS: METOCLOPRAMIDE HCL 10 MG TABLET GT SCH (05:40)
[2022-11-20] MEDS: NACL 0.9% 1,000 ML IV SCH (05:57)
[2022-11-20 08:00] VITALS: BP_SYST 133
[2022-11-20 08:32] LABS: BASOPHILS # (AUTO) 0.1 K/uL (0.0-0.2); BASOPHILS % (AUTO) 0.7 % (0.0-2.0); EOSINOPHILS # (AUTO) 0.1 K/uL (0.0-0.4); EOSINOPHILS % (AUTO) 0.9 % (0.0-4.0); HEMATOCRIT 28.6 % (36-54); HEMOGLOBIN 9.7 g/dL (14.0-18.0); LYMPHOCYTES # (AUTO) 2.3 K/uL (1.0-5.5); LYMPHOCYTES % (AUTO) 21.3 % (20.5-51.5); MEAN CORPUSCULAR HEMOGLOBIN 30 pg (27-31); MEAN CORPUSCULAR HGB CONC 34 % (32-36); MEAN CORPUSCULAR VOLUME 90 fL (79.0-98.0); MONOCYTES # (AUTO) 0.7 K/uL (0.0-1.0); MONOCYTES % (AUTO) 6.7 % (1.7-9.3); NEUTROPHILS # (AUTO) 7.6 K/uL (1.8-7.7); NEUTROPHILS % (AUTO) 70.4 % (40.0-70.0); PLATELET COUNT (AUTO) 187 K/uL (130-430); RED BLOOD CELL COUNT(AUTO) 3.19 MIL/uL (4.2-6.2); RED CELL DISTRIBUTION WIDTH 17.7 % (9.0-15.0); WHITE BLOOD COUNT (AUTO) 10.8 K/uL (4.8-10.8)
[2022-11-20] MEDS: HYDROCORTISONE SOD SUCC 100 MG/2 ML VIAL IVP SCH (09:12)
[2022-11-20] MEDS: CHLORHEXIDINE GLUC 0.12% 15 ML MOUTHWASH UDC MM SCH (09:12)
[2022-11-20] MEDS: MULTIVITAMINS TAB 1 TABLET GT SCH (09:13)
[2022-11-20] MEDS: MIDODRINE HCL 5 MG TABLET (PROAMATINE) GT SCH (09:13)
[2022-11-20] MEDS: ASCORBIC ACID 500 MG TABLET GT SCH (09:13)
[2022-11-20] MEDS: FERROUS SULFATE 300 MG/5 ML UDC GT SCH (09:13)
[2022-11-20] MEDS: POTASSIUM CHLORIDE 20 MEQ TAB.PRT.SR PO SCH (09:13)
[2022-11-20] MEDS: levETIRAcetam 500 MG TABLET GT SCH (09:13)
[2022-11-20] MEDS: FAMOTIDINE 20 MG TABLET GT SCH (09:13)
[2022-11-20] MEDS: RIVAROXABAN 10 MG TABLET GT SCH (09:15)
[2022-11-20 09:36] LABS: ALBUMIN 2.4 g/dL (3.4-4.8); CALCIUM 8.7 mg/dL (8.4-11.0); CREATININE 0.58 mg/dL (0.55-1.30); TOTAL BILIRUBIN 0.5 mg/dL (0.0-1.0)
[2022-11-20 10:49] VITALS: BP_SYST 133
[2022-11-20 12:31] VITALS: BP_SYST 151
== END 2022-11-20 14:30 | DRG 871 ==
LOC: SED 00:46 → SIC 02:12 → STU 11-15 11:13
PROVIDERS: ADMIT Family Medicine; ATTEND Family Medicine
PROC: 02H633Z Insertion of Infusion Device into Right Atrium, Percutaneous Approach (ICD-10-PCS; principal; 2022-11-12)
PROC: B548ZZA Ultrasonography of Superior Vena Cava, Guidance (ICD-10-PCS; 2022-11-12)
DX: A41.9 Sepsis, unspecified organism (principal); J18.9 Pneumonia, unspecified organism; J96.20 Acute and chronic respiratory failure, unspecified whether with hypoxia or hypercapnia; R65.21 Severe sepsis with septic shock; E44.0 Moderate protein-calorie malnutrition; N39.0 Urinary tract infection, site not specified; I48.20 Chronic atrial fibrillation, unspecified; G93.40 Encephalopathy, unspecified; Z16.21 Resistance to vancomycin; F03.90 Unspecified dementia, unspecified severity, without behavioral disturbance, psychotic disturbance, mood disturbance, and anxiety; K21.9 Gastro-esophageal reflux disease without esophagitis; G40.909 Epilepsy, unspecified, not intractable, without status epilepticus; E86.0 Dehydration; R13.10 Dysphagia, unspecified; Z20.822 Contact with and (suspected) exposure to COVID-19; B96.4 Proteus (mirabilis) (morganii) as the cause of diseases classified elsewhere; I10 Essential (primary) hypertension; Z66 Do not resuscitate; Z79.01 Long term (current) use of anticoagulants; Z86.19 Personal history of other infectious and parasitic diseases; Z86.73 Personal history of transient ischemic attack (TIA), and cerebral infarction without residual deficits; Z93.0 Tracheostomy status; Z93.1 Gastrostomy status
CPT/HCPCS: 36415; 71045; 76376; 80048; 80053; 80150; 80162; 81000; 82803-TC; 82962; 83605; 83735; 83880; 84132; 84484; 85025; 85610-TC; 85730-TC; 87040; 87070-TC; 87081; 87086; 87205-TC; 93005; 93306; 94640; 94668; 94760; 96365; 96366; 96367; 96375; 99291; 99292; G0378; J0278; J1160; J1720; J1815; J2020; J2185; J2543; J3370; J3490; J7050; J7060; J7608; J7613; J8597; P9046

== ENCOUNTER 2022-12-07 09:42 | Inpatient (IN) | payer OTHER, MEDICAID ==
[~2022-12-07] VITALS: Ht 167.6 cm; Wt 81.6 kg
[~2022-12-07 09:42] MED LIST: ALBU2.5V7 INH; ARGI1POW13 GT; ASCO500S10 GT; BISA-79 RC; CHLO473M5 PO; CRAN450T9 GT; DOCU-144 GT; ERGO50CA GT; FAMO20TA8 GT; FER300L GT; INSU100V11 SQ; INSU100V7 SUBCUT; LANS30CA53 GT; LEVE1000 GT; LIP20 GT; LISI20TA30 GT; METO-290 GT; MIDO10TA GT; MULT-1117 GT; RIVA10TA GT; TYLL650 GT
[2022-12-07 09:45] VITALS: BP_SYST 95
--- NOTE | 2022-12-07 09:51 | NUR ---
[facility], NON VERBAL,, TRACH, G TUBE, NO FEVER HERE AT THIS TIME.
[2022-12-07] MEDS ORDERED: cefTRIAXone 1 GM IVPB PREMIX 50 ML IV ONE (10:00)
--- NOTE | 2022-12-07 10:12 | NUR ---
Placed in room 01 . Placed on media monitor, blood pressure machine and pulse oximeter. To gown for exam. Side rails up.
[2022-12-07 10:44] LABS: BASOPHILS # (AUTO) 0.1 K/uL (0.0-0.2); BASOPHILS % (AUTO) 0.9 % (0.0-2.0); EOSINOPHILS # (AUTO) 0.3 K/uL (0.0-0.4); EOSINOPHILS % (AUTO) 3.1 % (0.0-4.0); HEMATOCRIT 26.2 % (36-54); HEMOGLOBIN 8.7 g/dL (14.0-18.0); LYMPHOCYTES # (AUTO) 0.9 K/uL (1.0-5.5); LYMPHOCYTES % (AUTO) 8.8 % (20.5-51.5); MEAN CORPUSCULAR HEMOGLOBIN 30 pg (27-31); MEAN CORPUSCULAR HGB CONC 33 % (32-36); MEAN CORPUSCULAR VOLUME 88 fL (79.0-98.0); MONOCYTES # (AUTO) 0.9 K/uL (0.0-1.0); MONOCYTES % (AUTO) 8.9 % (1.7-9.3); NEUTROPHILS # (AUTO) 7.8 K/uL (1.8-7.7); NEUTROPHILS % (AUTO) 78.3 % (40.0-70.0); PLATELET COUNT (AUTO) 154 K/uL (130-430); RED BLOOD CELL COUNT(AUTO) 2.96 MIL/uL (4.2-6.2); RED CELL DISTRIBUTION WIDTH 18.7 % (9.0-15.0)
--- NOTE | 2022-12-07 10:49 | NUR ---
LEFT FOOT OUTER AND INNER DTI, RIGHT FOOT OUTER DTI, RIGHT CERNA DTI, ,RIGHT ANKLE DTI, BUTTOCKS HEALED ULCER
[2022-12-07 10:59] LABS: ANION GAP 6 (5-15); CALCIUM 8.9 mg/dL (8.4-11.0); CHLORIDE 94 mmol/L (98-107); CREATININE 1.62 mg/dL (0.55-1.30); GFR AFRICAN AMERICAN 55 mL/min (>90); GLUCOSE 117 mg/dL (70-99); UREA NITROGEN, BLOOD 81 mg/dL (8-21)
[2022-12-07 11:05] LABS: ALANINE AMINOTRANSFERASE 30 U/L (12-78); ALBUMIN 2.6 g/dL (3.4-4.8); ASPARTATE AMINOTRANSFERASE 29 U/L (10-37); TOTAL BILIRUBIN 0.5 mg/dL (0.0-1.0)
[2022-12-07 11:23] LABS: BILIRUBIN,URINE NEGATIVE (NEGATIVE); BLOOD, URINE 3+ (NEGATIVE); CLARITY/URINE CLEAR (CLEAR); COLOR,URINE YELLOW (YELLOW); GLUCOSE,URINE NEGATIVE (NEGATIVE); KETONES,URINE NEGATIVE (NEGATIVE); LEUKOCYTE ESTERASE ,URINE 2+ (NEGATIVE); NITRITE, URINE NEGATIVE (NEGATIVE); PH,URINE 6.5 (5.0-8.0); PROTEIN URINE 1+ (NEGATIVE); UROBILINOGEN,URINE 0.2 (0.2-1.0)
[2022-12-07] MEDS ORDERED: NACL 0.9% 1,000 ML IV ONE (11:30)
--- NOTE | 2022-12-07 12:24 | NUR ---
COVID, FLU, MRSA SWAB COLLECTED
[2022-12-07 12:32] LABS: BACTERIA,URINE FEW /HPF (None Seen); RBC,URINE 20-50 /HPF (0-3)
[2022-12-07 12:33] LABS: WBC,URINE 20-50 /HPF (0-3)
--- NOTE | 2022-12-07 12:36 | NUR ---
Admit bed requested Patient will be admitted to care of . Admitted to unit.TELE Diagnosis PNA Inpatient (Yes ) Observation (Yes ) Orientation concerns or request close to nursing station ( No) Covid Status NEGATIVE On vent or bipap TRACH Isolation requirements NO Needs a sitter NO From Home (MANDA HUGHES) Requires Dialysis ( No) Med Rec Completed (No)
[2022-12-07] MEDS ORDERED: ACETAMINOPHEN 650 MG/20.3 ML UDC GT PRN ×2 (12:45→19:45)
[2022-12-07] MEDS ORDERED: VANCOMYCIN HCL 1000 MG/VIAL IV ONE (12:59)
[2022-12-07] MEDS ORDERED: VANCOMYCIN HCL 1,000 MG in NS 250 ML IV ONE (13:00)
[2022-12-07] MEDS ORDERED: D5NS 500 ML IV ONE (13:00)
[2022-12-07] MEDS ORDERED: PIPERACILLIN/TAZOBACTAM 3.375 GM/VIAL (ZOSYN) IV ONE ×2 (13:01→19:36)
[2022-12-07] MEDS: PIPERACILLIN/TAZO 3.375 GM in NS 50 ML IV SCH ×2 (13:02→19:36)
--- NOTE | 2022-12-07 13:53 | NUR ---
Admit bed requested Patient will be admitted to care of . Admitted to TELE unit. Diagnosis PNA, SEPSIS Inpatient (Yes or No) YES Observation (Yes or No) NO Orientation concerns or request close to nursing station (Yes or No) NO Covid Status NEGATIVE On vent or bipap NO Isolation requirements NO Needs a sitter NO From Home (Yes or if No enter name of facility) [facility] Requires Dialysis (Yes or No) NO Med Rec Completed (Yes of No) YES
--- NOTE | 2022-12-07 13:55 | NUR ---
Medication reconciliation completed with information provided by MANDA HUGHES. Any prior medication reconciliation on file was reviewed and corrected.
--- NOTE | 2022-12-07 19:03 | NUR ---
1800 URINE OUT PUT FROM F/C
[2022-12-07] MEDS ORDERED: ALBUTEROL SULFATE 0.083% 2.5 MG/3 ML VIAL.NEB INH PRN (19:45)
[2022-12-07] MEDS ORDERED: BISACODYL 5 MG TABLET.DR (DULCOLAX) GT PRN (19:45)
[2022-12-07] MEDS ORDERED: DOCUSATE SODIUM 100 MG CAPSULE PO PRN (19:45)
[2022-12-07] MEDS ORDERED: LORazepam 2 MG/ML VIAL IVP PRN (19:45)
[2022-12-07] MEDS ORDERED: INSULIN REGULAR, HUMAN 100 UNITS/ML, 3 ML VIAL (humuLIN R) SUBCUT PRN (20:00)
--- NOTE | 2022-12-07 20:36 | NUR ---
Patient will be admitted to care of MD Steiner. Admitted to TELE unit. Will go to room 104B. Complete and up to date summary report printed. SBAR report given at bedside to HANDY Gifford with opportunity for questions.
[2022-12-07] MEDS ORDERED: NON-FORMULARY MEDICATION (Arginine/Ascorbate Sod/Vite AC (Arginaid Powder) 1 EACH) GT SCH (21:00)
[2022-12-07] MEDS: CHLORHEXIDINE GLUC 0.12% 15 ML MOUTHWASH UDC MM SCH (21:00)
[2022-12-07] MEDS: INSULIN GLARGINE 100 UNITS/ML, 10 ML VIAL SUBCUT SCH (21:00)
[2022-12-07] MEDS ORDERED: NON-FORMULARY MEDICATION (Cranberry Fruit (Cranberry) 425 MG) GT SCH (21:00)
[2022-12-07 21:07] VITALS: BP_SYST 127
[2022-12-07] MEDS ORDERED: LevETIRAcetam 500 MG/5 ML UDC ORAL LIQUID ONE (21:19)
[2022-12-07] MEDS: LevETIRAcetam 500 MG/5 ML UDC ORAL LIQUID GT SCH (21:21)
[2022-12-07 21:22] VITALS: BP_SYST 127
[2022-12-07] MEDS: FAMOTIDINE 20 MG TABLET GT SCH (21:22)
[2022-12-07] MEDS: FERROUS SULFATE 300 MG/5 ML UDC GT SCH (21:22)
[2022-12-07] MEDS: METOCLOPRAMIDE HCL 10 MG TABLET GT SCH (21:22)
[2022-12-07] MEDS: ATORVASTATIN 20 MG TABLET GT SCH (21:22)
[2022-12-07] MEDS: MIDODRINE HCL 5 MG TABLET (PROAMATINE) GT SCH (21:22)
--- NOTE | 2022-12-07 22:00 | NUR ---
PT ADMITTED TO TELE. PT NON VERBAL UNABLE TO ANSWER QUESTIONS. PT HAS TRACH T BAR WITH 4L. IV IN R HAND 20G. WOUNDS TO R LEG AND L FOOT. PICTURES TAKEN. PT HAS NO BELONGINGS. BED ALARM ON. CALL LIGHT WITHIN REACH,
[2022-12-08] VITALS: BP_SYST 105
[2022-12-08] MEDS ORDERED: PIPERACILLIN/TAZOBACTAM 3.375 GM/VIAL (ZOSYN) IV ONE (01:38)
[2022-12-08] MEDS: PIPERACILLIN/TAZO 3.375 GM in NS 50 ML IV SCH ×3 (01:50→13:00)
--- NOTE | 2022-12-08 01:57 | NUR ---
CONSULTATION PAGED/CALLED Reason for Consultation: PNA , SEPSIS Person Who was Notified: MINE Consulting Physician: NYDIA Deckhand Sponge Boat Specialty: Ordering Physician: SWEETIE
--- NOTE | 2022-12-08 02:40 | NUR ---
CONSULTATION PAGED/CALLED Reason for Consultation: PNA, SEPSIS Person Who was Notified: MINE Consulting Physician: DOROTHEA Optical Engineering Manager Specialty: Ordering Physician: SWEETIE
[2022-12-08] MEDS: METOCLOPRAMIDE HCL 10 MG TABLET GT SCH ×3 (06:30→21:45)
--- NOTE | 2022-12-08 06:54 | NUR ---
PT DID NOT HAVE A FEVER DURING SHIFT. NO TYLENOL GIVEN DURING SHIFT
[2022-12-08 07:23] LABS: CALCIUM 8.9 mg/dL (8.4-11.0); CREATININE 1.25 mg/dL (0.55-1.30)
[2022-12-08 08:00] VITALS: BP_SYST 97
[2022-12-08 08:07] LABS: BASOPHILS % (AUTO) 0.4 % (0.0-2.0); EOSINOPHILS # (AUTO) 0.2 K/uL (0.0-0.4); EOSINOPHILS % (AUTO) 3.1 % (0.0-4.0); HEMATOCRIT 26.4 % (36-54); HEMOGLOBIN 8.8 g/dL (14.0-18.0); LYMPHOCYTES # (AUTO) 0.7 K/uL (1.0-5.5); MEAN CORPUSCULAR HEMOGLOBIN 30 pg (27-31); MEAN CORPUSCULAR HGB CONC 33 % (32-36); MEAN CORPUSCULAR VOLUME 89 fL (79.0-98.0); NEUTROPHILS # (AUTO) 5.6 K/uL (1.8-7.7); NEUTROPHILS % (AUTO) 74.5 % (40.0-70.0); PLATELET COUNT (AUTO) 143 K/uL (130-430); RED BLOOD CELL COUNT(AUTO) 2.97 MIL/uL (4.2-6.2); RED CELL DISTRIBUTION WIDTH 18.7 % (9.0-15.0); WHITE BLOOD COUNT (AUTO) 7.5 K/uL (4.8-10.8)
[2022-12-08] MEDS: MULTIVITAMINS TAB 1 TABLET GT SCH (08:33)
[2022-12-08] MEDS: LANSOPRAZOLE 30 MG CAPSULE.DR GT SCH (08:33)
[2022-12-08] MEDS: FERROUS SULFATE 300 MG/5 ML UDC GT SCH ×2 (08:33→21:44)
[2022-12-08] MEDS: FAMOTIDINE 20 MG TABLET GT SCH ×2 (08:33→21:46)
[2022-12-08] MEDS: MIDODRINE HCL 5 MG TABLET (PROAMATINE) GT SCH ×3 (08:34→21:45)
[2022-12-08] MEDS: ASCORBIC ACID 500 MG TABLET GT SCH (08:34)
[2022-12-08] MEDS: CHLORHEXIDINE GLUC 0.12% 15 ML MOUTHWASH UDC MM SCH ×2 (08:37→21:44)
[2022-12-08] MEDS: LevETIRAcetam 500 MG/5 ML UDC ORAL LIQUID GT SCH ×2 (08:37→21:45)
[2022-12-08] MEDS: INSULIN GLARGINE 100 UNITS/ML, 10 ML VIAL SUBCUT SCH (08:53)
[2022-12-08 11:46] VITALS: BP_SYST 92
[2022-12-08] MEDS: IPRATROPIUM/ALBUTEROL SULFATE 3 ML AMPUL.NEB (DUONEB) INH SCH ×2 (13:00→19:56)
[2022-12-08] MEDS ORDERED: VANCOMYCIN HCL 1,000 MG in NS 250 ML IV SCH (14:00)
[2022-12-08] MEDS: NACL 0.9% 1,000 ML IV SCH (14:25)
[2022-12-08] MEDS: PIPERACILLIN/TAZOBACTAM 3.375 GM/ DEX-IS 50 ML PREMIX IV SCH ×2 (16:20→21:46)
[2022-12-08 17:21] VITALS: BP_SYST 91
[2022-12-08] MEDS: RIVAROXABAN 10 MG TABLET GT SCH (17:26)
[2022-12-08 20:40] VITALS: BP_SYST 110
[2022-12-08] MEDS: ATORVASTATIN 20 MG TABLET GT SCH (21:46)
[2022-12-09 00:26] VITALS: BP_SYST 129
[2022-12-09] MEDS: IPRATROPIUM/ALBUTEROL SULFATE 3 ML AMPUL.NEB (DUONEB) INH SCH ×4 (01:00→21:42)
[2022-12-09] MEDS: INSULIN GLARGINE 100 UNITS/ML, 10 ML VIAL SUBCUT SCH ×3 (01:47→22:11)
--- NOTE | 2022-12-09 01:50 | NUR ---
GT feeding at goal rate of 64cc/hr. HOB maintained elevated. BS checked 129. 10 units Lantus administered at this time. To monitor.
[2022-12-09] MEDS: PIPERACILLIN/TAZOBACTAM 3.375 GM/ DEX-IS 50 ML PREMIX IV SCH ×4 (04:40→21:58)
[2022-12-09] MEDS: NACL 0.9% 1,000 ML IV SCH ×2 (05:04→13:27)
[2022-12-09] MEDS: METOCLOPRAMIDE HCL 10 MG TABLET GT SCH ×3 (06:25→21:57)
--- NOTE | 2022-12-09 06:40 | NUR ---
Closing notes/GT feeding BS checked 141. R hand IV infiltrated. Attempted to restart IV L. hand unsuccesful. Endorsed to Resource and RN. GT running at goal rate tolerating well. HOB maintained elevated. Mckenzie catheter draining to gravity with good output. To endorse to AM nurse.
[2022-12-09] MEDS ORDERED: ERGOCALCIFEROL GT SCH (09:00)
[2022-12-09] MEDS: MIDODRINE HCL 5 MG TABLET (PROAMATINE) GT SCH ×3 (09:00→21:57)
[2022-12-09] MEDS: LANSOPRAZOLE 30 MG CAPSULE.DR GT SCH (09:31)
[2022-12-09] MEDS: FERROUS SULFATE 300 MG/5 ML UDC GT SCH ×2 (09:31→21:56)
[2022-12-09] MEDS: LevETIRAcetam 500 MG/5 ML UDC ORAL LIQUID GT SCH ×2 (09:31→21:56)
[2022-12-09] MEDS: MULTIVITAMINS TAB 1 TABLET GT SCH (09:31)
[2022-12-09] MEDS: ASCORBIC ACID 500 MG TABLET GT SCH (09:32)
[2022-12-09] MEDS: CHLORHEXIDINE GLUC 0.12% 15 ML MOUTHWASH UDC MM SCH ×2 (09:32→22:01)
[2022-12-09] MEDS: FAMOTIDINE 20 MG TABLET GT SCH ×2 (09:32→21:57)
--- NOTE | 2022-12-09 10:05 | NUR ---
Dietitian Recommendations * Continue Glucerna 1.2 @ 64mL/hr (goal) via GT Provides (w/ Trevin): 202 kcal, 97g PRO, 1236mL free water Meets:96% of higher est kcal, 101% of higher est PRO, 69% of lower est fluid needs * Ordered: Trevin BID * Ordered: FWF 150mL q6h, or per rec GS, MPH, RD Please refer to RD Assessment for further details. Thanks! Addendum: 12/09/22 at [address] Amended: Links added.
[2022-12-09 12:57] VITALS: BP_SYST 114
[2022-12-09] MEDS ORDERED: ACETAMINOPHEN 650 MG/20.3 ML UDC GT PRN (14:12)
[2022-12-09 16:15] VITALS: BP_SYST 113
[2022-12-09] MEDS: RIVAROXABAN 10 MG TABLET GT SCH (18:33)
[2022-12-09 20:00] VITALS: BP_SYST 113
[2022-12-09] MEDS: ATORVASTATIN 20 MG TABLET GT SCH (21:57)
[2022-12-10] VITALS (9 sets, daily range): BP systolic 110–142
[2022-12-10] MEDS: IPRATROPIUM/ALBUTEROL SULFATE 3 ML AMPUL.NEB (DUONEB) INH SCH ×3 (02:11→19:48)
[2022-12-10] MEDS: PIPERACILLIN/TAZOBACTAM 3.375 GM/ DEX-IS 50 ML PREMIX IV SCH ×2 (03:07→09:19)
[2022-12-10] MEDS: NACL 0.9% 1,000 ML IV SCH ×2 (03:08→15:07)
[2022-12-10] MEDS: METOCLOPRAMIDE HCL 10 MG TABLET GT SCH ×3 (05:52→22:17)
[2022-12-10 06:51] LABS: BASOPHILS % (AUTO) 0.4 % (0.0-2.0); EOSINOPHILS # (AUTO) 0.4 K/uL (0.0-0.4); EOSINOPHILS % (AUTO) 5.9 % (0.0-4.0); HEMATOCRIT 27.1 % (36-54); HEMOGLOBIN 8.9 g/dL (14.0-18.0); LYMPHOCYTES % (AUTO) 15.9 % (20.5-51.5); MEAN CORPUSCULAR HEMOGLOBIN 30 pg (27-31); MEAN CORPUSCULAR HGB CONC 33 % (32-36); MEAN CORPUSCULAR VOLUME 90 fL (79.0-98.0); MONOCYTES # (AUTO) 0.7 K/uL (0.0-1.0); MONOCYTES % (AUTO) 11.7 % (1.7-9.3); NEUTROPHILS # (AUTO) 4.1 K/uL (1.8-7.7); NEUTROPHILS % (AUTO) 66.1 % (40.0-70.0); PLATELET COUNT (AUTO) 147 K/uL (130-430); RED BLOOD CELL COUNT(AUTO) 3.02 MIL/uL (4.2-6.2); RED CELL DISTRIBUTION WIDTH 18.5 % (9.0-15.0); WHITE BLOOD COUNT (AUTO) 6.2 K/uL (4.8-10.8)
--- NOTE | 2022-12-10 07:30 | NUR ---
Report received from Deep MURRELL for continuity of care. Patient in stable condition.
[2022-12-10 07:39] LABS: ALBUMIN 2.4 g/dL (3.4-4.8); CALCIUM 9.1 mg/dL (8.4-11.0); CREATININE 1.15 mg/dL (0.55-1.30); TOTAL BILIRUBIN 0.4 mg/dL (0.0-1.0)
--- NOTE | 2022-12-10 08:18 | NUR ---
Report received from HANDY Adame for continuity of care. Patient stable.
--- NOTE | 2022-12-10 08:18 | NUR ---
PT ENDORSED TO HANDY BAUM
[2022-12-10] MEDS: FERROUS SULFATE 300 MG/5 ML UDC GT SCH ×2 (09:18→22:16)
[2022-12-10] MEDS: ASCORBIC ACID 500 MG TABLET GT SCH (09:18)
[2022-12-10] MEDS: MIDODRINE HCL 5 MG TABLET (PROAMATINE) GT SCH ×3 (09:18→22:17)
[2022-12-10] MEDS: MULTIVITAMINS TAB 1 TABLET GT SCH (09:18)
[2022-12-10] MEDS: LANSOPRAZOLE 30 MG CAPSULE.DR GT SCH (09:19)
[2022-12-10] MEDS: FAMOTIDINE 20 MG TABLET GT SCH ×2 (09:19→22:16)
[2022-12-10] MEDS: CHLORHEXIDINE GLUC 0.12% 15 ML MOUTHWASH UDC MM SCH ×2 (09:55→22:21)
[2022-12-10] MEDS: LevETIRAcetam 500 MG/5 ML UDC ORAL LIQUID GT SCH ×2 (09:55→22:20)
[2022-12-10] MEDS: INSULIN GLARGINE 100 UNITS/ML, 10 ML VIAL SUBCUT SCH ×2 (09:57→22:41)
--- NOTE | 2022-12-10 15:16 | NUR ---
Dr. Steiner made aware of patient's bed availability and medication reconciliation. Communicated with Case management. Number for report is [facility]
--- NOTE | 2022-12-10 15:16 | NUR ---
INFORMED HANDY BAUM THAT SCRAP METAL COLLECTOR SAID THERE IS ROOM AVAILABLE IN [facility] AND WE NEED ORDER FROM . BAUTISTA SAID HE ALREADY TOLD DR PITT ABOUT IT. WILL WAIT FOR MD'S ORDER.
--- NOTE | 2022-12-10 16:51 | NUR ---
RN report given 32C.
[2022-12-10] MEDS ORDERED: LEVO750T64 IVPB (17:01)
--- NOTE | 2022-12-10 17:19 | NUR ---
Patient to transfer to [facility] at 8:30 PM by [facility] . Room Number 32-Number for report [phone].
[2022-12-10] MEDS: RIVAROXABAN 10 MG TABLET GT SCH (18:40)
--- NOTE | 2022-12-10 18:53 | NUR ---
Report given to shift supervisor RN for continuity of care. Patient in stable condition.
--- NOTE | 2022-12-10 20:00 | NUR ---
Patient is resting in bed comfortably, IV on right forearm, Mckenzie catheter patent and intact draining clear yellow urine via gravity, O2 @ 98% via trach @ 4L/min,
--- NOTE | 2022-12-10 21:14 | NUR ---
Follow up call made to [facility], spoke to dispatcher Damon, he said the crew will be here in one hour, the new ETA is [id number]
[2022-12-10] MEDS: ATORVASTATIN 20 MG TABLET GT SCH (22:16)
--- NOTE | 2022-12-10 23:15 | NUR ---
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 called [facility] spoke with Nori to reinsure the patient was going to be receive due to the time. Nori reinsure me that it was not going to be a problem, Gave report to [facility], pt was transfer via gurney with all belongings. left facility at 2301
== END 2022-12-10 23:01 | DRG 871 ==
LOC: SED 09:42 → STU 12:30
PROVIDERS: ADMIT Family Medicine; ATTEND Family Medicine
DX: A41.9 Sepsis, unspecified organism (principal); J18.9 Pneumonia, unspecified organism; J96.20 Acute and chronic respiratory failure, unspecified whether with hypoxia or hypercapnia; N39.0 Urinary tract infection, site not specified; N17.9 Acute kidney failure, unspecified; G93.40 Encephalopathy, unspecified; F03.90 Unspecified dementia, unspecified severity, without behavioral disturbance, psychotic disturbance, mood disturbance, and anxiety; G40.909 Epilepsy, unspecified, not intractable, without status epilepticus; Z20.822 Contact with and (suspected) exposure to COVID-19; E86.0 Dehydration; I10 Essential (primary) hypertension; E11.9 Type 2 diabetes mellitus without complications; Z93.0 Tracheostomy status; Z93.1 Gastrostomy status; Z86.73 Personal history of transient ischemic attack (TIA), and cerebral infarction without residual deficits; R65.20 Severe sepsis without septic shock
CPT/HCPCS: 36415; 71045; 80048; 80053; 81000; 83605; 83735; 83880; 84484; 85025; 87040; 87070-TC; 87081; 87086; 87205-TC; 93005; 94640; 94760; 96365; 96367; 99285; G0378; J0696; J1815; J1956; J2543; J3370; J7050; J8597

== ENCOUNTER 2023-10-25 22:47 | Inpatient (IN) | payer OTHER, MEDICAID ==
[~2023-10-25] VITALS: Ht 175.3 cm; Wt 84.8 kg
[~2023-10-25 22:47] MED LIST changes: +ACET160O10 GT; +ASCO500C18 GT; +BISA-140 PO; +CRAN450C GT; +DOCU-192 GT; +FAMO20TA8 PO; +FAMO40TA7 GT; +FER300L PO; +INSU100V7 SQ; +INSU100V9 SQ; +LANS30CA53 PO; +LANS30CA56 GT; +LEVE1000 PO; +LEVO750T64 IVPB; +LIP20 PO; +LOSA50TA28 GT; +MULT1CAP34 GT; +REGL10 PO; +ZINC220T4 GT
[2023-10-25 22:50] VITALS: BP_SYST 101; PULSE 114; RESP 20; TEMP 98.6; O2SAT 97
[2023-10-25] MEDS ORDERED: TRAM50TA2 PO (23:16)
[2023-10-26] VITALS (37 sets, daily range): BP systolic 90–127; PULSE 69–113; RESP 14–22; TEMP 97–98.1; O2SAT 92–100
[2023-10-26 00:04] LABS: MEAN CORPUSCULAR HGB CONC 33 % (32-36)
[2023-10-26 00:10] LABS: BASOPHILS % (AUTO) 0.3 % (0.0-2.0); EOSINOPHILS # (AUTO) 0.1 K/uL (0.0-0.4); EOSINOPHILS % (AUTO) 0.5 % (0.0-4.0); LYMPHOCYTES # (AUTO) 1.1 K/uL (1.0-5.5); LYMPHOCYTES % (AUTO) 7.4 % (20.5-51.5); MEAN CORPUSCULAR HEMOGLOBIN 27 pg (27-31); MEAN CORPUSCULAR VOLUME 82 fL (79.0-98.0); MONOCYTES # (AUTO) 0.9 K/uL (0.0-1.0); MONOCYTES % (AUTO) 6.3 % (1.7-9.3); NEUTROPHILS # (AUTO) 12.4 K/uL (1.8-7.7); NEUTROPHILS % (AUTO) 85.5 % (40.0-70.0); PLATELET COUNT (AUTO) 210 K/uL (130-430); RED BLOOD CELL COUNT(AUTO) 2.51 MIL/uL (4.2-6.2); RED CELL DISTRIBUTION WIDTH 18.3 % (9.0-15.0); WHITE BLOOD COUNT (AUTO) 14.5 K/uL (4.8-10.8)
[2023-10-26 00:15] LABS: HEMATOCRIT 20.7 % (36-54); HEMOGLOBIN 6.9 g/dL (14.0-18.0)
[2023-10-26 00:18] LABS: INR 1.1 (0.80-1.20)
[2023-10-26 00:21] LABS: ALANINE AMINOTRANSFERASE 16 U/L (12-78); ALBUMIN 1.2 g/dL (3.4-4.8); ANION GAP 8 (5-15); ASPARTATE AMINOTRANSFERASE 25 U/L (10-37); BILIRUBIN,DIRECT 0.1 mg/dL (0.0-0.3); CALCIUM 8.5 mg/dL (8.4-11.0); CARBON DIOXIDE 32 mmol/L (23-29); CHLORIDE 94 mmol/L (98-107); CREATININE 1.99 mg/dL (0.55-1.30); GFR AFRICAN AMERICAN 43 mL/min (>90); GLUCOSE 181 mg/dL (74-106); SODIUM SERUM 134 mmol/L (136-145); TOTAL BILIRUBIN 0.3 mg/dL (0.0-1.0); TOTAL PROTEIN, SERUM 7.4 g/dL (6.4-8.3); UREA NITROGEN, BLOOD 99 mg/dL (8-21)
[2023-10-26 00:26] LABS: GFR NON AFRICAN-AMERICAN 36 mL/min (>90)
[2023-10-26 00:28] LABS: POTASSIUM 2.6 mmol/L (3.5-5.1)
[2023-10-26] MEDS ORDERED: ALBUMIN HUMAN 5% 250 ML IV ONE ×2 (01:00→02:55)
[2023-10-26] MEDS ORDERED: VANCOMYCIN HCL 1.25 GM/NS 250 ML IV ONE (01:00)
[2023-10-26] MEDS ORDERED: NACL 0.9% 1,000 ML IV ONE (01:00)
[2023-10-26] MEDS ORDERED: KCL 40 mEq in 100 mL (PREMIX) 100 ML IV ONE ×2 (01:00→11:45)
[2023-10-26] MEDS ORDERED: PIPERACILLIN/TAZO 4.5 GM in NS 100 ML IV ONE (01:00)
[2023-10-26] MEDS ORDERED: PIPERACILLIN/TAZOBACTAM 4.5 GM/VIAL (ZOSYN) IV ONE (02:15)
[2023-10-26] MEDS ORDERED: VANCOMYCIN HCL 1000 MG/VIAL IV ONE (02:33)
[2023-10-26] MEDS ORDERED: KCL 20 mEq in 100 mL (PREMIX) 200 ML IV ONE (02:33)
[2023-10-26] MEDS ORDERED: VANCOMYCIN HCL 500 MG/VIAL IV ONE (02:34)
[2023-10-26] MEDS ORDERED: KCL 20 mEq in D5NS 1000 mL 1,000 ML IV ONE (03:45)
[2023-10-26 04:48] LABS: COVID19 ANTIGEN SOFIA FIA NEGATIVE (NEGATIVE)
[2023-10-26 05:11] LABS: BILIRUBIN,URINE NEGATIVE (NEGATIVE); BLOOD, URINE 3+ (NEGATIVE); CLARITY/URINE CLOUDY (CLEAR); COLOR,URINE BROWN (YELLOW); GLUCOSE,URINE NEGATIVE (NEGATIVE); KETONES,URINE NEGATIVE (NEGATIVE); LEUKOCYTE ESTERASE ,URINE 3+ (NEGATIVE); NITRITE, URINE POSITIVE (NEGATIVE); PH,URINE 7.5 (5.0-8.0); PROTEIN URINE 2+ (NEGATIVE); UROBILINOGEN,URINE 0.2 (0.2-1.0)
[2023-10-26 05:12] LABS: RBC,URINE >100 /HPF (0-3)
[2023-10-26 05:13] LABS: BACTERIA,URINE MODERATE /HPF (None Seen); WBC,URINE 50-80 /HPF (0-3)
[2023-10-26 05:15] LABS: INFLUENZA TYPE A Negative (NEGATIVE); INFLUENZA TYPE B NEGATIVE (NEGATIVE)
[2023-10-26 09:50] LABS: BASOPHILS # (AUTO) 0.1 K/uL (0.0-0.2); BASOPHILS % (AUTO) 0.6 % (0.0-2.0); EOSINOPHILS # (AUTO) 0.1 K/uL (0.0-0.4); EOSINOPHILS % (AUTO) 0.8 % (0.0-4.0); HEMATOCRIT 27.9 % (36-54); HEMOGLOBIN 9.2 g/dL (14.0-18.0); LYMPHOCYTES # (AUTO) 0.8 K/uL (1.0-5.5); MEAN CORPUSCULAR HEMOGLOBIN 28 pg (27-31); MEAN CORPUSCULAR HGB CONC 33 % (32-36); MEAN CORPUSCULAR VOLUME 85 fL (79.0-98.0); MONOCYTES # (AUTO) 0.6 K/uL (0.0-1.0); MONOCYTES % (AUTO) 4.6 % (1.7-9.3); NEUTROPHILS # (AUTO) 11.2 K/uL (1.8-7.7); PLATELET COUNT (AUTO) 195 K/uL (130-430); WHITE BLOOD COUNT (AUTO) 12.7 K/uL (4.8-10.8)
[2023-10-26 09:59] LABS: ALBUMIN 1.3 g/dL (3.4-4.8); CALCIUM 8.3 mg/dL (8.4-11.0); CREATININE 1.8 mg/dL (0.55-1.30); TOTAL BILIRUBIN 0.5 mg/dL (0.0-1.0); TOTAL PROTEIN, SERUM 7.3 g/dL (6.4-8.3)
[2023-10-26] MEDS: ALBUMIN HUMAN 25% 50 ML IV SCH ×2 (13:56→17:47)
[2023-10-26] MEDS: PIPERACILLIN/TAZO 3.375 GM in NS 50 ML IV SCH ×2 (13:57→17:47)
[2023-10-26] MEDS ORDERED: POTASSIUM CHLORIDE 40 MEQ in NS 250 ML IV ONE (14:00)
[2023-10-26] MEDS: KCL 20 mEq in NS 1000 mL 1,000 ML IV SCH ×2 (17:47→22:00)
[2023-10-26] MEDS ORDERED: ALBUTEROL SULFATE 0.083% 2.5 MG/3 ML VIAL.NEB INH SCH (18:15)
[2023-10-26] MEDS ORDERED: ALBUTEROL SULFATE 0.083% 2.5 MG/3 ML VIAL.NEB INH PRN (18:15)
[2023-10-26] MEDS ORDERED: ACETAMINOPHEN 650 MG/20.3 ML UDC GT PRN (18:15)
[2023-10-26] MEDS ORDERED: traMADol HCL HCL 50 MG TABLET (ULTRAM) PO PRN (18:15)
[2023-10-26] MEDS ORDERED: traMADol HCL HCL 50 MG TABLET (ULTRAM) GT PRN (18:28)
[2023-10-26] MEDS: DOCUSATE SODIUM 100 MG/10 ML UDC GT SCH (21:00)
[2023-10-26] MEDS: BISACODYL 5 MG TABLET.DR (DULCOLAX) GT SCH (21:00)
[2023-10-26] MEDS: LevETIRAcetam 500 MG/5 ML UDC ORAL LIQUID GT SCH (21:05)
[2023-10-26] MEDS: CHLORHEXIDINE GLUC 0.12% 15 ML MOUTHWASH UDC MM SCH (21:05)
[2023-10-26] MEDS: LINEZOLID 300 ML IV SCH (21:05)
[2023-10-26] MEDS: INSULIN GLARGINE 100 UNITS/ML, 10 ML VIAL SQ SCH (21:07)
[2023-10-26] MEDS: INSULIN REGULAR, HUMAN 100 UNITS/ML, 3 ML VIAL (humuLIN R) SUBCUT PRN (21:08)
[2023-10-26] MEDS: ATORVASTATIN 20 MG TABLET GT SCH (21:10)
[2023-10-26] MEDS: FERROUS SULFATE 300 MG/5 ML UDC GT SCH (21:10)
[2023-10-26] MEDS: MIDODRINE HCL 5 MG TABLET (PROAMATINE) GT SCH (21:10)
[2023-10-26] MEDS: METOCLOPRAMIDE HCL 10 MG/10 ML UDC GT SCH (22:00)
[2023-10-27] VITALS (53 sets, daily range): BP systolic 98–147; PULSE 59–96; RESP 11–30; TEMP 97.5–98.6; O2SAT 93–100
[2023-10-27] MEDS: ALBUMIN HUMAN 25% 50 ML IV SCH (00:12)
[2023-10-27] MEDS: INSULIN REGULAR, HUMAN 100 UNITS/ML, 3 ML VIAL (humuLIN R) SUBCUT PRN (00:13)
[2023-10-27] MEDS: PIPERACILLIN/TAZO 3.375 GM in NS 50 ML IV SCH ×5 (00:13→23:40)
[2023-10-27 05:09] LABS: BASOPHILS % (AUTO) 0.2 % (0.0-2.0); EOSINOPHILS # (AUTO) 0.3 K/uL (0.0-0.4); EOSINOPHILS % (AUTO) 2.3 % (0.0-4.0); HEMATOCRIT 24.8 % (36-54); HEMOGLOBIN 8.3 g/dL (14.0-18.0); LYMPHOCYTES # (AUTO) 0.9 K/uL (1.0-5.5); LYMPHOCYTES % (AUTO) 6.7 % (20.5-51.5); MEAN CORPUSCULAR HEMOGLOBIN 28 pg (27-31); MEAN CORPUSCULAR HGB CONC 34 % (32-36); MEAN CORPUSCULAR VOLUME 84 fL (79.0-98.0); MONOCYTES # (AUTO) 0.7 K/uL (0.0-1.0); MONOCYTES % (AUTO) 4.8 % (1.7-9.3); NEUTROPHILS # (AUTO) 12.1 K/uL (1.8-7.7); PLATELET COUNT (AUTO) 208 K/uL (130-430); RED BLOOD CELL COUNT(AUTO) 2.97 MIL/uL (4.2-6.2); RED CELL DISTRIBUTION WIDTH 17.3 % (9.0-15.0)
[2023-10-27 05:37] LABS: CALCIUM 8.1 mg/dL (8.4-11.0); CREATININE 1.72 mg/dL (0.55-1.30); POTASSIUM 3.2 mmol/L (3.5-5.1)
[2023-10-27] MEDS: METOCLOPRAMIDE HCL 10 MG/10 ML UDC GT SCH ×3 (06:07→23:39)
[2023-10-27] MEDS: INSULIN GLARGINE 100 UNITS/ML, 10 ML VIAL SQ SCH ×2 (08:28→21:01)
[2023-10-27] MEDS: LevETIRAcetam 500 MG/5 ML UDC ORAL LIQUID GT SCH ×2 (08:31→20:54)
[2023-10-27] MEDS: DOCUSATE SODIUM 100 MG/10 ML UDC GT SCH ×2 (08:31→20:50)
[2023-10-27] MEDS: FAMOTIDINE 20 MG TABLET GT SCH (08:32)
[2023-10-27] MEDS: MULTIVITAMINS TAB 1 TABLET GT SCH (08:32)
[2023-10-27] MEDS: MIDODRINE HCL 5 MG TABLET (PROAMATINE) GT SCH ×3 (08:32→20:51)
[2023-10-27] MEDS: BISACODYL 5 MG TABLET.DR (DULCOLAX) GT SCH ×2 (08:32→20:50)
[2023-10-27] MEDS: LANSOPRAZOLE 30 MG CAPSULE.DR GT SCH (08:33)
[2023-10-27] MEDS: RIVAROXABAN 10 MG TABLET GT SCH (08:33)
[2023-10-27] MEDS: LINEZOLID 300 ML IV SCH ×2 (08:34→20:54)
[2023-10-27] MEDS: LOSARTAN POTASSIUM 50 MG TABLET (COZAAR) GT SCH (09:00)
[2023-10-27] MEDS: KCL 20 mEq in NS 1000 mL 1,000 ML IV SCH ×2 (09:57→20:47)
[2023-10-27] MEDS: FERROUS SULFATE 300 MG/5 ML UDC GT SCH ×2 (09:57→20:50)
[2023-10-27] MEDS: CHLORHEXIDINE GLUC 0.12% 15 ML MOUTHWASH UDC MM SCH ×2 (10:06→20:52)
[2023-10-27] MEDS ORDERED: POTASSIUM CHLORIDE 20 MEQ/PKT PACKET GT ONE (10:45)
[2023-10-27] MEDS: ATORVASTATIN 20 MG TABLET GT SCH (20:51)
[2023-10-28] VITALS (52 sets, daily range): BP systolic 120–144; PULSE 56–84; RESP 13–30; TEMP 97.5–98.1; O2SAT 96–99
[2023-10-28] MEDS: INSULIN REGULAR, HUMAN 100 UNITS/ML, 3 ML VIAL (humuLIN R) SUBCUT PRN ×2 (00:08→13:27)
[2023-10-28] MEDS: KCL 20 mEq in NS 1000 mL 1,000 ML IV SCH ×3 (05:27→23:34)
[2023-10-28 05:35] LABS: BASOPHILS % (AUTO) 0.3 % (0.0-2.0); EOSINOPHILS # (AUTO) 0.4 K/uL (0.0-0.4); HEMATOCRIT 29.4 % (36-54); HEMOGLOBIN 9.5 g/dL (14.0-18.0); LYMPHOCYTES # (AUTO) 1.3 K/uL (1.0-5.5); LYMPHOCYTES % (AUTO) 10.2 % (20.5-51.5); MEAN CORPUSCULAR HEMOGLOBIN 28 pg (27-31); MEAN CORPUSCULAR HGB CONC 33 % (32-36); MEAN CORPUSCULAR VOLUME 85 fL (79.0-98.0); MONOCYTES # (AUTO) 0.7 K/uL (0.0-1.0); MONOCYTES % (AUTO) 5.6 % (1.7-9.3); NEUTROPHILS # (AUTO) 10.5 K/uL (1.8-7.7); NEUTROPHILS % (AUTO) 80.9 % (40.0-70.0); PLATELET COUNT (AUTO) 291 K/uL (130-430); RED BLOOD CELL COUNT(AUTO) 3.45 MIL/uL (4.2-6.2); RED CELL DISTRIBUTION WIDTH 17.6 % (9.0-15.0); WHITE BLOOD COUNT (AUTO) 12.9 K/uL (4.8-10.8)
[2023-10-28 06:00] LABS: CALCIUM 8.3 mg/dL (8.4-11.0); CREATININE 1.73 mg/dL (0.55-1.30); POTASSIUM 3.1 mmol/L (3.5-5.1)
[2023-10-28 06:05] LABS: TOTAL IRON BIND. CAPACITY 115 ug/dL (250-450)
[2023-10-28] MEDS: PIPERACILLIN/TAZO 3.375 GM in NS 50 ML IV SCH ×4 (06:06→23:35)
[2023-10-28] MEDS: METOCLOPRAMIDE HCL 10 MG/10 ML UDC GT SCH ×3 (06:07→23:34)
[2023-10-28] MEDS: DOCUSATE SODIUM 100 MG/10 ML UDC GT SCH ×2 (09:00→20:11)
[2023-10-28] MEDS: BISACODYL 5 MG TABLET.DR (DULCOLAX) GT SCH ×2 (09:00→20:12)
[2023-10-28] MEDS: LOSARTAN POTASSIUM 50 MG TABLET (COZAAR) GT SCH (09:38)
[2023-10-28] MEDS: FAMOTIDINE 20 MG TABLET GT SCH (09:40)
[2023-10-28] MEDS: FERROUS SULFATE 300 MG/5 ML UDC GT SCH ×2 (09:40→20:13)
[2023-10-28] MEDS: LANSOPRAZOLE 30 MG CAPSULE.DR GT SCH (09:40)
[2023-10-28] MEDS: MULTIVITAMINS TAB 1 TABLET GT SCH (09:40)
[2023-10-28] MEDS: LevETIRAcetam 500 MG/5 ML UDC ORAL LIQUID GT SCH ×2 (09:40→20:13)
[2023-10-28] MEDS: MIDODRINE HCL 5 MG TABLET (PROAMATINE) GT SCH ×3 (09:41→20:12)
[2023-10-28] MEDS: RIVAROXABAN 10 MG TABLET GT SCH (09:41)
[2023-10-28] MEDS: LINEZOLID 300 ML IV SCH ×2 (09:42→20:13)
[2023-10-28] MEDS: CHLORHEXIDINE GLUC 0.12% 15 ML MOUTHWASH UDC MM SCH ×2 (09:42→20:12)
[2023-10-28] MEDS: INSULIN GLARGINE 100 UNITS/ML, 10 ML VIAL SQ SCH ×2 (09:51→20:23)
[2023-10-28] MEDS: ATORVASTATIN 20 MG TABLET GT SCH (20:12)
[2023-10-29] VITALS (46 sets, daily range): BP systolic 133–154; PULSE 55–75; RESP 13–26; TEMP 97.3–98.8; O2SAT 97–100
[2023-10-29] MEDS: INSULIN REGULAR, HUMAN 100 UNITS/ML, 3 ML VIAL (humuLIN R) SUBCUT PRN ×3 (00:16→13:23)
[2023-10-29] MEDS: PIPERACILLIN/TAZO 3.375 GM in NS 50 ML IV SCH ×2 (05:21→13:49)
[2023-10-29 05:31] LABS: BASOPHILS % (AUTO) 0.4 % (0.0-2.0); EOSINOPHILS # (AUTO) 0.5 K/uL (0.0-0.4); EOSINOPHILS % (AUTO) 3.6 % (0.0-4.0); HEMOGLOBIN 9.4 g/dL (14.0-18.0); LYMPHOCYTES # (AUTO) 1.7 K/uL (1.0-5.5); LYMPHOCYTES % (AUTO) 12.5 % (20.5-51.5); MEAN CORPUSCULAR HEMOGLOBIN 28 pg (27-31); MEAN CORPUSCULAR HGB CONC 33 % (32-36); MEAN CORPUSCULAR VOLUME 86 fL (79.0-98.0); MONOCYTES # (AUTO) 0.8 K/uL (0.0-1.0); MONOCYTES % (AUTO) 6.2 % (1.7-9.3); NEUTROPHILS # (AUTO) 10.6 K/uL (1.8-7.7); NEUTROPHILS % (AUTO) 77.3 % (40.0-70.0); PLATELET COUNT (AUTO) 295 K/uL (130-430); RED BLOOD CELL COUNT(AUTO) 3.38 MIL/uL (4.2-6.2); WHITE BLOOD COUNT (AUTO) 13.7 K/uL (4.8-10.8)
[2023-10-29 05:43] LABS: CALCIUM 8.1 mg/dL (8.4-11.0); CREATININE 1.5 mg/dL (0.55-1.30)
[2023-10-29] MEDS: METOCLOPRAMIDE HCL 10 MG/10 ML UDC GT SCH ×2 (06:01→15:51)
[2023-10-29 08:08] LABS: FERRITIN 1083 ng/mL (30-400)
[2023-10-29] MEDS: BISACODYL 5 MG TABLET.DR (DULCOLAX) GT SCH ×2 (09:00→23:37)
[2023-10-29] MEDS: INSULIN GLARGINE 100 UNITS/ML, 10 ML VIAL SQ SCH ×2 (09:23→23:43)
[2023-10-29] MEDS: MIDODRINE HCL 5 MG TABLET (PROAMATINE) GT SCH ×3 (09:34→23:50)
[2023-10-29] MEDS: LevETIRAcetam 500 MG/5 ML UDC ORAL LIQUID GT SCH ×2 (09:34→21:00)
[2023-10-29] MEDS: MULTIVITAMINS TAB 1 TABLET GT SCH (09:35)
[2023-10-29] MEDS: DOCUSATE SODIUM 100 MG/10 ML UDC GT SCH ×2 (09:35→23:37)
[2023-10-29] MEDS: CHLORHEXIDINE GLUC 0.12% 15 ML MOUTHWASH UDC MM SCH ×2 (09:35→21:00)
[2023-10-29] MEDS: LANSOPRAZOLE 30 MG CAPSULE.DR GT SCH (09:35)
[2023-10-29] MEDS: FAMOTIDINE 20 MG TABLET GT SCH (09:35)
[2023-10-29] MEDS: RIVAROXABAN 10 MG TABLET GT SCH (09:36)
[2023-10-29] MEDS: FERROUS SULFATE 300 MG/5 ML UDC GT SCH ×2 (09:37→23:37)
[2023-10-29] MEDS: BALSAM PERU/CASTOR OIL 56.7 GM OINT...G. TP SCH (09:38)
[2023-10-29] MEDS: LINEZOLID 300 ML IV SCH (09:40)
[2023-10-29] MEDS: KCL 20 mEq in NS 1000 mL 1,000 ML IV SCH (11:13)
[2023-10-29] MEDS: LOSARTAN POTASSIUM 50 MG TABLET (COZAAR) GT SCH (11:15)
[2023-10-29] MEDS: KCL 20 mEq in 0.45% NS 1000 mL 1,000 ML IV SCH (14:05)
[2023-10-29] MEDS: POTASSIUM CHLORIDE 20 MEQ/PKT PACKET PO SCH (15:52)
[2023-10-29] MEDS: ATORVASTATIN 20 MG TABLET GT SCH (23:37)
[2023-10-30] VITALS (32 sets, daily range): BP systolic 142–148; PULSE 60–88; RESP 14–18; TEMP 98–98.6; O2SAT 98–100
[2023-10-30] MEDS: METOCLOPRAMIDE HCL 10 MG/10 ML UDC GT SCH ×3 (00:10→16:12)
[2023-10-30] MEDS: POTASSIUM CHLORIDE 20 MEQ/PKT PACKET PO SCH (00:11)
[2023-10-30] MEDS: KCL 20 mEq in 0.45% NS 1000 mL 1,000 ML IV SCH ×3 (00:12→21:20)
[2023-10-30] MEDS: LINEZOLID 300 ML IV SCH ×3 (00:12→21:23)
[2023-10-30] MEDS: PIPERACILLIN/TAZO 3.375 GM in NS 50 ML IV SCH ×4 (00:12→18:37)
[2023-10-30 03:12] LABS: FOLATE (FOLIC ACID) >20.0 ng/mL (>3.0)
[2023-10-30] MEDS: INSULIN REGULAR, HUMAN 100 UNITS/ML, 3 ML VIAL (humuLIN R) SUBCUT PRN (06:49)
[2023-10-30] MEDS: LevETIRAcetam 500 MG/5 ML UDC ORAL LIQUID GT SCH ×2 (09:51→21:20)
[2023-10-30] MEDS: CHLORHEXIDINE GLUC 0.12% 15 ML MOUTHWASH UDC MM SCH ×2 (09:51→21:20)
[2023-10-30] MEDS: MULTIVITAMINS TAB 1 TABLET GT SCH (09:52)
[2023-10-30] MEDS: FERROUS SULFATE 300 MG/5 ML UDC GT SCH ×2 (09:52→21:20)
[2023-10-30] MEDS: DOCUSATE SODIUM 100 MG/10 ML UDC GT SCH ×2 (09:52→21:20)
[2023-10-30] MEDS: MIDODRINE HCL 5 MG TABLET (PROAMATINE) GT SCH ×3 (09:53→21:21)
[2023-10-30] MEDS: LANSOPRAZOLE 30 MG CAPSULE.DR GT SCH (09:53)
[2023-10-30] MEDS: LOSARTAN POTASSIUM 50 MG TABLET (COZAAR) GT SCH (09:53)
[2023-10-30] MEDS: BISACODYL 5 MG TABLET.DR (DULCOLAX) GT SCH ×2 (09:53→21:21)
[2023-10-30] MEDS: FAMOTIDINE 20 MG TABLET GT SCH (09:53)
[2023-10-30] MEDS: RIVAROXABAN 10 MG TABLET GT SCH (09:55)
[2023-10-30] MEDS: BALSAM PERU/CASTOR OIL 56.7 GM OINT...G. TP SCH (10:01)
[2023-10-30] MEDS: INSULIN GLARGINE 100 UNITS/ML, 10 ML VIAL SQ SCH ×2 (10:04→22:11)
[2023-10-30] MEDS: ATORVASTATIN 20 MG TABLET GT SCH (21:21)
[2023-10-31] VITALS (33 sets, daily range): BP systolic 138–164; PULSE 51–86; RESP 17–20; TEMP 97–98.8; O2SAT 97–100
[2023-10-31] MEDS: METOCLOPRAMIDE HCL 10 MG/10 ML UDC GT SCH ×3 (00:11→17:14)
[2023-10-31] MEDS: KCL 20 mEq in 0.45% NS 1000 mL 1,000 ML IV SCH ×3 (00:15→17:45)
[2023-10-31] MEDS: PIPERACILLIN/TAZO 3.375 GM in NS 50 ML IV SCH ×4 (00:15→17:44)
[2023-10-31] MEDS: INSULIN REGULAR, HUMAN 100 UNITS/ML, 3 ML VIAL (humuLIN R) SUBCUT PRN (00:33)
[2023-10-31] MEDS: RIVAROXABAN 10 MG TABLET GT SCH (09:49)
[2023-10-31] MEDS: INSULIN GLARGINE 100 UNITS/ML, 10 ML VIAL SQ SCH ×2 (09:49→21:00)
[2023-10-31] MEDS: CHLORHEXIDINE GLUC 0.12% 15 ML MOUTHWASH UDC MM SCH ×2 (09:50→22:01)
[2023-10-31] MEDS: LOSARTAN POTASSIUM 50 MG TABLET (COZAAR) GT SCH (09:51)
[2023-10-31] MEDS: BISACODYL 5 MG TABLET.DR (DULCOLAX) GT SCH ×2 (09:51→21:00)
[2023-10-31] MEDS: DOCUSATE SODIUM 100 MG/10 ML UDC GT SCH ×2 (09:51→21:00)
[2023-10-31] MEDS: MIDODRINE HCL 5 MG TABLET (PROAMATINE) GT SCH ×3 (09:52→22:01)
[2023-10-31] MEDS: LevETIRAcetam 500 MG/5 ML UDC ORAL LIQUID GT SCH ×2 (09:52→22:01)
[2023-10-31] MEDS: FERROUS SULFATE 300 MG/5 ML UDC GT SCH ×2 (09:52→22:01)
[2023-10-31] MEDS: FAMOTIDINE 20 MG TABLET GT SCH (09:53)
[2023-10-31] MEDS: MULTIVITAMINS TAB 1 TABLET GT SCH (09:53)
[2023-10-31] MEDS: LANSOPRAZOLE 30 MG CAPSULE.DR GT SCH (09:53)
[2023-10-31] MEDS: BALSAM PERU/CASTOR OIL 56.7 GM OINT...G. TP SCH (09:57)
[2023-10-31] MEDS: LINEZOLID 300 ML IV SCH ×2 (10:17→22:01)
[2023-10-31] MEDS: ATORVASTATIN 20 MG TABLET GT SCH (22:01)
[2023-11-01] VITALS (24 sets, daily range): BP systolic 127–149; PULSE 53–69; RESP 14–18; TEMP 98.6–98.8; O2SAT 97–100
[2023-11-01] MEDS: METOCLOPRAMIDE HCL 10 MG/10 ML UDC GT SCH ×3 (00:16→15:49)
[2023-11-01] MEDS: PIPERACILLIN/TAZO 3.375 GM in NS 50 ML IV SCH ×3 (00:17→12:59)
[2023-11-01 05:14] LABS: BASOPHILS % (AUTO) 0.4 % (0.0-2.0); EOSINOPHILS # (AUTO) 0.5 K/uL (0.0-0.4); EOSINOPHILS % (AUTO) 4.1 % (0.0-4.0); HEMATOCRIT 29.1 % (36-54); HEMOGLOBIN 9.3 g/dL (14.0-18.0); LYMPHOCYTES % (AUTO) 15.8 % (20.5-51.5); MEAN CORPUSCULAR HEMOGLOBIN 28 pg (27-31); MEAN CORPUSCULAR HGB CONC 32 % (32-36); MEAN CORPUSCULAR VOLUME 87 fL (79.0-98.0); MONOCYTES # (AUTO) 0.6 K/uL (0.0-1.0); MONOCYTES % (AUTO) 4.4 % (1.7-9.3); NEUTROPHILS # (AUTO) 9.7 K/uL (1.8-7.7); NEUTROPHILS % (AUTO) 75.3 % (40.0-70.0); PLATELET COUNT (AUTO) 247 K/uL (130-430); RED BLOOD CELL COUNT(AUTO) 3.37 MIL/uL (4.2-6.2); RED CELL DISTRIBUTION WIDTH 17.9 % (9.0-15.0); WHITE BLOOD COUNT (AUTO) 12.9 K/uL (4.8-10.8)
[2023-11-01 05:31] LABS: ALBUMIN 1.3 g/dL (3.4-4.8); CALCIUM 7.9 mg/dL (8.4-11.0); CREATININE 1.44 mg/dL (0.55-1.30); POTASSIUM 3.5 mmol/L (3.5-5.1); TOTAL BILIRUBIN 0.3 mg/dL (0.0-1.0); TOTAL PROTEIN, SERUM 6.7 g/dL (6.4-8.3)
[2023-11-01] MEDS: KCL 20 mEq in 0.45% NS 1000 mL 1,000 ML IV SCH (06:50)
[2023-11-01] MEDS: BISACODYL 5 MG TABLET.DR (DULCOLAX) GT SCH (09:00)
[2023-11-01] MEDS: DOCUSATE SODIUM 100 MG/10 ML UDC GT SCH (09:00)
[2023-11-01] MEDS: LINEZOLID 300 ML IV SCH (09:22)
[2023-11-01] MEDS: LANSOPRAZOLE 30 MG CAPSULE.DR GT SCH (09:23)
[2023-11-01] MEDS: CHLORHEXIDINE GLUC 0.12% 15 ML MOUTHWASH UDC MM SCH (09:23)
[2023-11-01] MEDS: MIDODRINE HCL 5 MG TABLET (PROAMATINE) GT SCH ×2 (09:23→15:49)
[2023-11-01] MEDS: MULTIVITAMINS TAB 1 TABLET GT SCH (09:24)
[2023-11-01] MEDS: FAMOTIDINE 20 MG TABLET GT SCH (09:24)
[2023-11-01] MEDS: LOSARTAN POTASSIUM 50 MG TABLET (COZAAR) GT SCH (09:25)
[2023-11-01] MEDS: LevETIRAcetam 500 MG/5 ML UDC ORAL LIQUID GT SCH (09:25)
[2023-11-01] MEDS: FERROUS SULFATE 300 MG/5 ML UDC GT SCH (09:25)
[2023-11-01] MEDS: BALSAM PERU/CASTOR OIL 56.7 GM OINT...G. TP SCH (09:26)
[2023-11-01] MEDS: RIVAROXABAN 10 MG TABLET GT SCH (09:28)
[2023-11-01] MEDS: INSULIN GLARGINE 100 UNITS/ML, 10 ML VIAL SQ SCH (10:32)
== END 2023-11-01 17:25 | DRG 870 ==
LOC: SED 22:47 → SIC 10-26 03:31 → STU 10-29 16:09
PROVIDERS: ADMIT Family Medicine; ATTEND Family Medicine
PROC: 5A1955Z Respiratory Ventilation, Greater than 96 Consecutive Hours (ICD-10-PCS; principal; 2023-10-26)
PROC: 30233N1 Transfusion of Nonautologous Red Blood Cells into Peripheral Vein, Percutaneous Approach (ICD-10-PCS; 2023-10-26)
PROC: 0S9C3ZZ Drainage of Right Knee Joint, Percutaneous Approach (ICD-10-PCS; 2023-10-27)
PROC: 05HY33Z Insertion of Infusion Device into Upper Vein, Percutaneous Approach (ICD-10-PCS; 2023-10-29)
PROC: B54MZZA Ultrasonography of Right Upper Extremity Veins, Guidance (ICD-10-PCS; 2023-10-29)
DX: A41.9 Sepsis, unspecified organism (principal); R65.21 Severe sepsis with septic shock; J15.69 Pneumonia due to other Gram-negative bacteria; N39.0 Urinary tract infection, site not specified; Z99.11 Dependence on respirator [ventilator] status; M00.9 Pyogenic arthritis, unspecified; J96.10 Chronic respiratory failure, unspecified whether with hypoxia or hypercapnia; N17.9 Acute kidney failure, unspecified; M86.8X6 Other osteomyelitis, lower leg; Z66 Do not resuscitate; D64.9 Anemia, unspecified; E87.6 Hypokalemia; Z20.822 Contact with and (suspected) exposure to COVID-19; K21.9 Gastro-esophageal reflux disease without esophagitis; E78.5 Hyperlipidemia, unspecified; F41.9 Anxiety disorder, unspecified; I10 Essential (primary) hypertension; F03.90 Unspecified dementia, unspecified severity, without behavioral disturbance, psychotic disturbance, mood disturbance, and anxiety; I48.91 Unspecified atrial fibrillation; E86.0 Dehydration; E88.09 Other disorders of plasma-protein metabolism, not elsewhere classified; E11.69 Type 2 diabetes mellitus with other specified complication; R13.10 Dysphagia, unspecified; Z86.73 Personal history of transient ischemic attack (TIA), and cerebral infarction without residual deficits; Z93.0 Tracheostomy status; Z93.1 Gastrostomy status
CPT/HCPCS: 36415; 71045; 73560-TC; 80048; 80053; 80076; 81000; 81001; 81015; 82607; 82728; 82746; 82962; 83540; 83550; 83605; 83735; 84484; 85025; 85610-TC; 85651-TC; 85730-TC; 86886; 86900; 86901; 86920; 87040; 87070-TC; 87075-TC; 87077; 87081; 87086; 87186-TC; 87205-TC; 93005; 94002; 94003; 94640; 94760; 99291; G0378; J1815; J2020; J2543; J3370; J3480; J7050; J8597; P9021; P9041; P9046

== ENCOUNTER 2023-11-30 11:05 | Inpatient (IN) | payer OTHER, MEDICAID ==
[~2023-11-30] VITALS: Ht 175.3 cm; Wt 99.8 kg
[2023-11-30] VITALS (15 sets, daily range): BP systolic 118–176; PULSE 71–92; RESP 17–25; TEMP 96–98.8; O2SAT 99–100
[~2023-11-30 11:05] MED LIST changes: -ACET160O10 GT; -BISA-140 PO; -CRAN450T9 GT; -DOCU-144 GT; -FAMO20TA8 PO; -FAMO40TA7 GT; -FER300L PO; -INSU100V7 SQ; -INSU100V9 SQ; -LANS30CA53 GT; -LANS30CA53 PO; -LANS30CA56 GT; -LEVE1000 PO; -LEVO750T64 IVPB; -LIP20 PO; -METO-290 GT; +TRAM50TA2 PO
[2023-11-30 11:45] LABS: MEAN CORPUSCULAR HEMOGLOBIN 29 pg (27-31); MEAN CORPUSCULAR HGB CONC 33 % (32-36); MEAN CORPUSCULAR VOLUME 88 fL (79.0-98.0); PLATELET COUNT (AUTO) 180 K/uL (130-430); RED CELL DISTRIBUTION WIDTH 22.4 % (9.0-15.0); WHITE BLOOD COUNT (AUTO) 12.2 K/uL (4.8-10.8)
[2023-11-30 11:55] LABS: RED BLOOD CELL COUNT(AUTO) 1.98 MIL/uL (4.2-6.2)
[2023-11-30 11:56] LABS: ANION GAP 19 (5-15); CARBON DIOXIDE 23 mmol/L (23-29); CHLORIDE 109 mmol/L (98-107); GLUCOSE 124 mg/dL (74-106); HEMATOCRIT 17.5 % (36-54); HEMOGLOBIN 5.7 g/dL (14.0-18.0); POTASSIUM 3.3 mmol/L (3.5-5.1); SODIUM SERUM 151 mmol/L (136-145); UREA NITROGEN, BLOOD 83 mg/dL (8-21)
[2023-11-30 11:57] LABS: CREATININE 3.38 mg/dL (0.55-1.30); GFR AFRICAN AMERICAN 24 mL/min (>90)
[2023-11-30 12:01] LABS: GFR NON AFRICAN-AMERICAN 19 mL/min (>90)
[2023-11-30 12:03] LABS: ALANINE AMINOTRANSFERASE 18 U/L (12-78); ASPARTATE AMINOTRANSFERASE 23 U/L (10-37); BILIRUBIN,DIRECT 0.1 mg/dL (0.0-0.3); TOTAL BILIRUBIN 0.3 mg/dL (0.0-1.0); TOTAL PROTEIN, SERUM 7.8 g/dL (6.4-8.3)
[2023-11-30 12:10] LABS: INR 1.1 (0.80-1.20); PROTHROMBIN TIME 11.5 SECS (9.5-12.5)
[2023-11-30 13:21] LABS: ANISOCYTOSIS 2+; BASOPHILS % (MANUAL) 0 % (0-2); EOSINOPHILS % (MANUAL) 10 % (0-7); LYMPHOCYTES % (MANUAL) 14 % (20-46); MONOCYTES % (MANUAL) 6 % (0-11); PLATELET ESTIMATE ADEQUATE (ADEQUATE)
[2023-11-30] MEDS ORDERED: BISACODYL 5 MG TABLET.DR (DULCOLAX) GT PRN (14:00)
[2023-11-30] MEDS: POTASSIUM CHLORIDE 20 MEQ/PKT PACKET GT ONE (14:42)
[2023-11-30] MEDS ORDERED: MIDODRINE HCL 5 MG TABLET (PROAMATINE) GT ONE (16:15)
[2023-11-30] MEDS: traMADol HCL HCL 50 MG TABLET (ULTRAM) PO PRN (20:46)
[2023-11-30] MEDS: levETIRAcetam 500 MG TABLET GT SCH (20:56)
[2023-11-30] MEDS: FERROUS SULFATE 300 MG/5 ML UDC GT SCH (20:56)
[2023-11-30] MEDS: ATORVASTATIN 20 MG TABLET GT SCH (20:56)
[2023-11-30] MEDS: FAMOTIDINE 20 MG TABLET GT SCH (20:56)
[2023-11-30] MEDS: LINEZOLID 300 ML IV SCH (20:56)
[2023-11-30] MEDS: CHLORHEXIDINE GLUC 0.12% 15 ML MOUTHWASH UDC MM SCH (20:57)
[2023-11-30] MEDS: METOCLOPRAMIDE HCL 10 MG/10 ML UDC PO SCH (20:57)
[2023-11-30] MEDS: DOCUSATE SODIUM 100 MG CAPSULE PO SCH (20:57)
[2023-11-30] MEDS ORDERED: MIDODRINE HCL 5 MG TABLET (PROAMATINE) GT SCH (21:00)
[2023-11-30] MEDS ORDERED: NON-FORMULARY MEDICATION (Arginine/Ascorbate Sod/Vite AC (Arginaid Powder) 1 EACH) GT SCH (21:00)
[2023-11-30] MEDS: PIPERACILLIN/TAZO 2.25G/DEX-IS 50 ML IV SCH (23:06)
[2023-12-01] VITALS (48 sets, daily range): BP systolic 118–179; PULSE 68–134; RESP 13–25; TEMP 96.7–98.3; O2SAT 96–100
[2023-12-01 04:30] LABS: BILIRUBIN,URINE NEGATIVE (NEGATIVE); BLOOD, URINE 3+ (NEGATIVE); CLARITY/URINE SL CLOUDY (CLEAR); COLOR,URINE YELLOW (YELLOW); GLUCOSE,URINE TRACE (NEGATIVE); KETONES,URINE NEGATIVE (NEGATIVE); LEUKOCYTE ESTERASE ,URINE 2+ (NEGATIVE); NITRITE, URINE NEGATIVE (NEGATIVE); PH,URINE 7.5 (5.0-8.0); PROTEIN URINE 3+ (NEGATIVE); UROBILINOGEN,URINE 0.2 (0.2-1.0)
[2023-12-01] MEDS: D5W 1,000 ML IV SCH (04:30)
[2023-12-01 04:35] LABS: BACTERIA,URINE MANY /HPF (None Seen); RBC,URINE >100 /HPF (0-3); WBC,URINE >100 /HPF (0-3)
[2023-12-01 05:13] LABS: BASOPHILS # (AUTO) 0.1 K/uL (0.0-0.2); BASOPHILS % (AUTO) 0.5 % (0.0-2.0); EOSINOPHILS # (AUTO) 0.8 K/uL (0.0-0.4); EOSINOPHILS % (AUTO) 8.2 % (0.0-4.0); HEMATOCRIT 27.1 % (36-54); HEMOGLOBIN 9.2 g/dL (14.0-18.0); LYMPHOCYTES # (AUTO) 2.4 K/uL (1.0-5.5); LYMPHOCYTES % (AUTO) 23.7 % (20.5-51.5); MEAN CORPUSCULAR HEMOGLOBIN 30 pg (27-31); MEAN CORPUSCULAR HGB CONC 34 % (32-36); MEAN CORPUSCULAR VOLUME 88 fL (79.0-98.0); MONOCYTES # (AUTO) 0.6 K/uL (0.0-1.0); NEUTROPHILS # (AUTO) 6.1 K/uL (1.8-7.7); NEUTROPHILS % (AUTO) 61.6 % (40.0-70.0); PLATELET COUNT (AUTO) 142 K/uL (130-430); RED BLOOD CELL COUNT(AUTO) 3.09 MIL/uL (4.2-6.2); RED CELL DISTRIBUTION WIDTH 18.8 % (9.0-15.0); RETICULOCYTE COUNT 1.3 % (0.5-1.5); WHITE BLOOD COUNT (AUTO) 9.9 K/uL (4.8-10.8)
[2023-12-01 05:41] LABS: TOTAL IRON BIND. CAPACITY 207 ug/dL (250-450)
[2023-12-01] MEDS: hydrALAZINE HCL 20 MG/ML VIAL IVP PRN (06:36)
[2023-12-01 08:30] LABS: CALCIUM 8.5 mg/dL (8.4-11.0); CREATININE 3.09 mg/dL (0.55-1.30)
[2023-12-01] MEDS: ERGOCALCIFEROL 8000 UNITS/ML ORAL SOLUTION, 60 ML BOTTLE GT SCH (08:57)
[2023-12-01] MEDS ORDERED: CRANBERRY FRUIT GT SCH (09:00)
[2023-12-01] MEDS ORDERED: ASCORBIC ACID 500 MG GT SCH (09:00)
[2023-12-01] MEDS ORDERED: VITAMIN GT SCH (09:00)
[2023-12-01] MEDS ORDERED: ERGOCALCIFEROL GT SCH (09:00)
[2023-12-01] MEDS: LOSARTAN POTASSIUM 50 MG TABLET (COZAAR) GT SCH (09:04)
[2023-12-01] MEDS: ASCORBIC ACID 500 MG TABLET GT SCH (09:04)
[2023-12-01] MEDS: RIVAROXABAN 10 MG TABLET GT SCH (09:05)
[2023-12-01] MEDS: INSULIN GLARGINE 100 UNITS/ML, 10 ML VIAL SUBCUT SCH (09:35)
[2023-12-01] MEDS: MULTIVITAMINS TAB 1 TABLET GT SCH (09:36)
[2023-12-01] MEDS ORDERED: BISA10SU61 RC (11:05)
[2023-12-01] MEDS ORDERED: LEVE100S PO (11:05)
[2023-12-01] MEDS ORDERED: ALBU2.5V7 INH (11:17)
[2023-12-01] MEDS: INSULIN REGULAR, HUMAN 100 UNITS/ML, 3 ML VIAL (humuLIN R) SUBCUT PRN (11:38)
[2023-12-01] MEDS: LevETIRAcetam 500 MG/5 ML UDC ORAL LIQUID GT SCH (21:05)
[2023-12-01] MEDS: DOCUSATE SODIUM 100 MG/10 ML UDC PO ONE (21:12)
[2023-12-02] VITALS (44 sets, daily range): BP systolic 121–165; PULSE 80–118; RESP 14–27; TEMP 97.5–98.2; O2SAT 93–100
[2023-12-02 04:40] LABS: ALBUMIN 1.9 g/dL (3.4-4.8); CALCIUM 9.2 mg/dL (8.4-11.0); CREATININE 3.1 mg/dL (0.55-1.30); TOTAL BILIRUBIN 0.4 mg/dL (0.0-1.0); TOTAL PROTEIN, SERUM 7.2 g/dL (6.4-8.3)
[2023-12-02 04:56] LABS: BASOPHILS % (AUTO) 0.4 % (0.0-2.0); EOSINOPHILS # (AUTO) 0.5 K/uL (0.0-0.4); EOSINOPHILS % (AUTO) 5.6 % (0.0-4.0); HEMATOCRIT 24.8 % (36-54); HEMOGLOBIN 8.4 g/dL (14.0-18.0); LYMPHOCYTES # (AUTO) 1.3 K/uL (1.0-5.5); LYMPHOCYTES % (AUTO) 14.9 % (20.5-51.5); MEAN CORPUSCULAR HEMOGLOBIN 30 pg (27-31); MEAN CORPUSCULAR HGB CONC 34 % (32-36); MEAN CORPUSCULAR VOLUME 88 fL (79.0-98.0); MONOCYTES # (AUTO) 0.6 K/uL (0.0-1.0); MONOCYTES % (AUTO) 6.8 % (1.7-9.3); NEUTROPHILS # (AUTO) 6.1 K/uL (1.8-7.7); NEUTROPHILS % (AUTO) 72.3 % (40.0-70.0); PLATELET COUNT (AUTO) 138 K/uL (130-430); RED BLOOD CELL COUNT(AUTO) 2.82 MIL/uL (4.2-6.2); RED CELL DISTRIBUTION WIDTH 18.4 % (9.0-15.0); WHITE BLOOD COUNT (AUTO) 8.5 K/uL (4.8-10.8)
[2023-12-02 05:06] LABS: POTASSIUM 2.7 mmol/L (3.5-5.1)
[2023-12-02] MEDS: POTASSIUM CHLORIDE 20 MEQ/PKT PACKET PO ONE ×2 (06:46→10:56)
[2023-12-02] MEDS: DOCUSATE SODIUM 100 MG/10 ML UDC PO SCH (08:30)
[2023-12-02] MEDS: EPOETIN ALFA-EPBX 4,000 UNITS/ML VIAL SUBCUT SCH (17:54)
[2023-12-03] VITALS (46 sets, daily range): BP systolic 106–156; PULSE 89–127; RESP 12–32; TEMP 97.6–98.5; O2SAT 94–100
[2023-12-03 05:10] LABS: BASOPHILS % (AUTO) 0.4 % (0.0-2.0); EOSINOPHILS # (AUTO) 0.9 K/uL (0.0-0.4); EOSINOPHILS % (AUTO) 9.3 % (0.0-4.0); HEMOGLOBIN 8.2 g/dL (14.0-18.0); LYMPHOCYTES # (AUTO) 1.5 K/uL (1.0-5.5); LYMPHOCYTES % (AUTO) 16.2 % (20.5-51.5); MEAN CORPUSCULAR HEMOGLOBIN 30 pg (27-31); MEAN CORPUSCULAR HGB CONC 34 % (32-36); MEAN CORPUSCULAR VOLUME 88 fL (79.0-98.0); MONOCYTES # (AUTO) 0.5 K/uL (0.0-1.0); MONOCYTES % (AUTO) 5.5 % (1.7-9.3); NEUTROPHILS # (AUTO) 6.4 K/uL (1.8-7.7); NEUTROPHILS % (AUTO) 68.6 % (40.0-70.0); PLATELET COUNT (AUTO) 134 K/uL (130-430); RED BLOOD CELL COUNT(AUTO) 2.74 MIL/uL (4.2-6.2); RED CELL DISTRIBUTION WIDTH 19.2 % (9.0-15.0); WHITE BLOOD COUNT (AUTO) 9.3 K/uL (4.8-10.8)
[2023-12-03 05:53] LABS: CREATININE 2.94 mg/dL (0.55-1.30); POTASSIUM 3.4 mmol/L (3.5-5.1)
[2023-12-03] MEDS: ALBUTEROL SULFATE 0.083% 2.5 MG/3 ML VIAL.NEB INH PRN (07:21)
[2023-12-03] MEDS: LORazepam 1 MG TABLET PO PRN (15:29)
[2023-12-04] VITALS (29 sets, daily range): BP systolic 91–158; PULSE 53–107; RESP 14–28; TEMP 96.5–97.8; O2SAT 95–100
[2023-12-04 06:35] LABS: BASOPHILS % (AUTO) 0.6 % (0.0-2.0); EOSINOPHILS # (AUTO) 0.7 K/uL (0.0-0.4); EOSINOPHILS % (AUTO) 8.5 % (0.0-4.0); HEMATOCRIT 23.8 % (36-54); HEMOGLOBIN 7.9 g/dL (14.0-18.0); LYMPHOCYTES # (AUTO) 2.1 K/uL (1.0-5.5); LYMPHOCYTES % (AUTO) 24.7 % (20.5-51.5); MEAN CORPUSCULAR HEMOGLOBIN 29 pg (27-31); MEAN CORPUSCULAR HGB CONC 33 % (32-36); MEAN CORPUSCULAR VOLUME 88 fL (79.0-98.0); MONOCYTES # (AUTO) 0.5 K/uL (0.0-1.0); NEUTROPHILS % (AUTO) 60.2 % (40.0-70.0); PLATELET COUNT (AUTO) 135 K/uL (130-430); RED CELL DISTRIBUTION WIDTH 19.5 % (9.0-15.0); WHITE BLOOD COUNT (AUTO) 8.4 K/uL (4.8-10.8)
[2023-12-04 06:45] LABS: CALCIUM 8.2 mg/dL (8.4-11.0); CREATININE 2.79 mg/dL (0.55-1.30)
[2023-12-04] MEDS: POTASSIUM CHLORIDE 20 MEQ/PKT PACKET PO ONE (22:29)
[2023-12-05] VITALS (30 sets, daily range): BP systolic 119–148; PULSE 94–126; RESP 15–18; TEMP 97.4–98.4; O2SAT 98–100
[2023-12-05] MEDS: POTASSIUM CHLORIDE 20 MEQ/PKT PACKET PO ONE (03:33)
[2023-12-05 07:08] LABS: BASOPHILS % (AUTO) 0.4 % (0.0-2.0); EOSINOPHILS # (AUTO) 0.7 K/uL (0.0-0.4); EOSINOPHILS % (AUTO) 7.3 % (0.0-4.0); HEMATOCRIT 24.9 % (36-54); HEMOGLOBIN 8.3 g/dL (14.0-18.0); LYMPHOCYTES # (AUTO) 2.5 K/uL (1.0-5.5); LYMPHOCYTES % (AUTO) 24.8 % (20.5-51.5); MEAN CORPUSCULAR HEMOGLOBIN 30 pg (27-31); MEAN CORPUSCULAR HGB CONC 34 % (32-36); MEAN CORPUSCULAR VOLUME 88 fL (79.0-98.0); MONOCYTES # (AUTO) 0.7 K/uL (0.0-1.0); MONOCYTES % (AUTO) 7.4 % (1.7-9.3); NEUTROPHILS # (AUTO) 6.1 K/uL (1.8-7.7); NEUTROPHILS % (AUTO) 60.1 % (40.0-70.0); PLATELET COUNT (AUTO) 153 K/uL (130-430); RED BLOOD CELL COUNT(AUTO) 2.81 MIL/uL (4.2-6.2); RED CELL DISTRIBUTION WIDTH 19.7 % (9.0-15.0); WHITE BLOOD COUNT (AUTO) 10.1 K/uL (4.8-10.8)
[2023-12-05 07:15] LABS: CALCIUM 8.4 mg/dL (8.4-11.0); CREATININE 2.75 mg/dL (0.55-1.30); POTASSIUM 4.1 mmol/L (3.5-5.1)
[2023-12-05] MEDS: ACETAMINOPHEN 650 MG/20.3 ML UDC GT PRN (22:04)
[2023-12-06] VITALS (35 sets, daily range): BP systolic 103–147; PULSE 74–122; RESP 15–20; TEMP 96.4–98.4; O2SAT 99–100
[2023-12-06 06:15] LABS: BASOPHILS % (AUTO) 0.4 % (0.0-2.0); EOSINOPHILS # (AUTO) 0.9 K/uL (0.0-0.4); EOSINOPHILS % (AUTO) 9.8 % (0.0-4.0); HEMATOCRIT 22.8 % (36-54); HEMOGLOBIN 7.7 g/dL (14.0-18.0); LYMPHOCYTES # (AUTO) 2.3 K/uL (1.0-5.5); LYMPHOCYTES % (AUTO) 24.9 % (20.5-51.5); MEAN CORPUSCULAR HEMOGLOBIN 30 pg (27-31); MEAN CORPUSCULAR HGB CONC 34 % (32-36); MEAN CORPUSCULAR VOLUME 88 fL (79.0-98.0); MONOCYTES # (AUTO) 0.7 K/uL (0.0-1.0); MONOCYTES % (AUTO) 7.4 % (1.7-9.3); NEUTROPHILS # (AUTO) 5.3 K/uL (1.8-7.7); NEUTROPHILS % (AUTO) 57.5 % (40.0-70.0); PLATELET COUNT (AUTO) 136 K/uL (130-430); RED BLOOD CELL COUNT(AUTO) 2.58 MIL/uL (4.2-6.2); RED CELL DISTRIBUTION WIDTH 19.3 % (9.0-15.0); WHITE BLOOD COUNT (AUTO) 9.2 K/uL (4.8-10.8)
[2023-12-06 06:23] LABS: CREATININE 2.88 mg/dL (0.55-1.30); POTASSIUM 3.3 mmol/L (3.5-5.1); TOTAL BILIRUBIN 0.4 mg/dL (0.0-1.0); TOTAL PROTEIN, SERUM 7.6 g/dL (6.4-8.3)
[2023-12-06] MEDS: FLUCONAZOLE 200 mg/ NS 100 ML IV SCH (17:20)
[2023-12-06] MEDS ORDERED: KCL 20 mEq in 100 mL (PREMIX) 100 ML IV SCH (18:00)
[2023-12-07] MEDS ORDERED: LEVOFLOXACIN 250 MG/D5W 50 ML IV SCH (12:00)
== END 2023-12-06 21:15 | DRG 870 ==
LOC: SED 11:05 → SIC 12:33 → SMU 12-03 20:50 → STU 12-03 22:08
PROVIDERS: ADMIT Family Medicine; ATTEND Family Medicine
PROC: 5A1955Z Respiratory Ventilation, Greater than 96 Consecutive Hours (ICD-10-PCS; principal; 2023-11-30)
PROC: 30233N1 Transfusion of Nonautologous Red Blood Cells into Peripheral Vein, Percutaneous Approach (ICD-10-PCS; 2023-11-30)
DX: A41.9 Sepsis, unspecified organism (principal); J96.00 Acute respiratory failure, unspecified whether with hypoxia or hypercapnia; N17.0 Acute kidney failure with tubular necrosis; M86.8X6 Other osteomyelitis, lower leg; G93.49 Other encephalopathy; Z99.11 Dependence on respirator [ventilator] status; D64.9 Anemia, unspecified; E86.0 Dehydration; I10 Essential (primary) hypertension; G40.909 Epilepsy, unspecified, not intractable, without status epilepticus; E11.69 Type 2 diabetes mellitus with other specified complication; Z86.16 Personal history of COVID-19; Z86.73 Personal history of transient ischemic attack (TIA), and cerebral infarction without residual deficits; Z93.1 Gastrostomy status; Z93.0 Tracheostomy status
CPT/HCPCS: 36415; 71045; 76770; 80048; 80053; 80076; 81000; 81001; 81015; 82272; 82948; 83540; 83550; 83735; 83880; 84484; 85007; 85025; 85027; 85044; 85610; 85730; 86886; 86900; 86901; 86920; 87070; 87081; 87086; 87205; 93005; 94002; 94003; 94640; 94760; 99291; G0378; J0360; J1450; J1815; J1956; J2020; J2543; J8597; P9021; Q5106

== ENCOUNTER 2024-08-04 20:26 | Inpatient (IN) | payer OTHER, MEDICAID ==
[~2024-08-04] VITALS: Ht 167.6 cm; Wt 86.6 kg
[~2024-08-04 20:26] MED LIST changes: -ARGI1POW13 GT; -ASCO500C18 GT; -BISA-79 RC; +BISA10SU61 RC; -ERGO50CA GT; -LEVE1000 GT; +LEVE100S PO; -LISI20TA30 GT; -MULT1CAP34 GT
[2024-08-04 20:40] VITALS: BP_SYST 129; PULSE 118; RESP 20; TEMP 98; O2SAT 98
[2024-08-04] MEDS: PANTOPRAZOLE SODIUM 80 MG in NS 100 ML IVP ONE (22:00)
[2024-08-04 22:31] LABS: BASOPHILS # (AUTO) 0.1 K/uL (0.0-0.2); BASOPHILS % (AUTO) 0.9 % (0.0-2.0); EOSINOPHILS # (AUTO) 0.3 K/uL (0.0-0.4); EOSINOPHILS % (AUTO) 2.3 % (0.0-4.0); HEMATOCRIT 32.8 % (36-54); LYMPHOCYTES # (AUTO) 1.4 K/uL (1.0-5.5); LYMPHOCYTES % (AUTO) 11.7 % (20.5-51.5); MEAN CORPUSCULAR HEMOGLOBIN 32 pg (27-31); MEAN CORPUSCULAR HGB CONC 34 % (32-36); MEAN CORPUSCULAR VOLUME 94 fL (79.0-98.0); MONOCYTES # (AUTO) 0.7 K/uL (0.0-1.0); MONOCYTES % (AUTO) 5.7 % (1.7-9.3); NEUTROPHILS # (AUTO) 9.2 K/uL (1.8-7.7); NEUTROPHILS % (AUTO) 79.4 % (40.0-70.0); PLATELET COUNT (AUTO) 222 K/uL (130-430); RED BLOOD CELL COUNT(AUTO) 3.47 MIL/uL (4.2-6.2); RED CELL DISTRIBUTION WIDTH 17.8 % (9.0-15.0); WHITE BLOOD COUNT (AUTO) 11.6 K/uL (4.8-10.8)
[2024-08-04 22:49] LABS: ANION GAP 12 (5-15); CALCIUM 11.9 mg/dL (8.4-11.0); CARBON DIOXIDE 32 mmol/L (23-29); CHLORIDE 96 mmol/L (98-107); CREATININE 3.71 mg/dL (0.55-1.30); GFR AFRICAN AMERICAN 21 mL/min (>90); GLUCOSE 207 mg/dL (74-106); POTASSIUM 3.1 mmol/L (3.5-5.1); SODIUM SERUM 140 mmol/L (136-145); UREA NITROGEN, BLOOD 57 mg/dL (8-21)
[2024-08-04 23:00] LABS: GFR NON AFRICAN-AMERICAN 17 mL/min (>90)
[2024-08-05] VITALS (49 sets, daily range): BP systolic 81–159; PULSE 85–143; RESP 16–19; TEMP 98.2–98.9; O2SAT 93–100
[2024-08-05] MEDS ORDERED: ASCO500T20 PO (00:02)
[2024-08-05] MEDS ORDERED: CLON1TAB12 PO (00:02)
[2024-08-05] MEDS ORDERED: ALBMDI INH (00:02)
[2024-08-05] MEDS ORDERED: ASPI-1393 PO (00:02)
[2024-08-05] MEDS ORDERED: MIDO5TAB4 PO (00:02)
[2024-08-05] MEDS ORDERED: OMEP40CA20 PO (00:02)
[2024-08-05] MEDS ORDERED: LEVE500T9 PO (00:02)
[2024-08-05] MEDS ORDERED: ONDA-8 TL (00:03)
[2024-08-05] MEDS: PIPERACILLIN/TAZO 3.375 GM in NS 50 ML IV ONE (01:15)
[2024-08-05] MEDS ORDERED: PANTOPRAZOLE SODIUM 40 MG/VIAL (PROTONIX) ONE ×2 (03:49→05:19)
[2024-08-05] MEDS ORDERED: PIPERACILLIN/TAZOBACTAM 3.375 GM/VIAL (ZOSYN) IV ONE (03:50)
[2024-08-05] MEDS ORDERED: BISACODYL 10 MG/SUPPOSITORY RC PRN (04:30)
[2024-08-05] MEDS ORDERED: VANCOMYCIN HCL 1000 MG/VIAL IV ONE (05:21)
[2024-08-05] MEDS: D5/0.45 NS 1,000 ML IV SCH (05:27)
[2024-08-05] MEDS: PANTOPRAZOLE SODIUM 40 MG in NS 50 ML IV SCH (05:28)
[2024-08-05] MEDS: VANCOMYCIN HCL 1 GM/NS PREMIX 250 ML IV ONE (05:30)
[2024-08-05] MEDS ORDERED: NOREPINEPHRINE BITARTRATE 4 MG in NS 246 ML IV PRN (06:30)
[2024-08-05] MEDS ORDERED: NOREPINEPHRINE 4 MG/4 ML VIAL IV ONE (06:37)
[2024-08-05 07:41] LABS: BASOPHILS % (AUTO) 0.1 % (0.0-2.0); EOSINOPHILS # (AUTO) 0.1 K/uL (0.0-0.4); EOSINOPHILS % (AUTO) 0.9 % (0.0-4.0); HEMATOCRIT 39.5 % (36-54); HEMOGLOBIN 12.7 g/dL (14.0-18.0); LYMPHOCYTES # (AUTO) 1.6 K/uL (1.0-5.5); LYMPHOCYTES % (AUTO) 12.2 % (20.5-51.5); MEAN CORPUSCULAR HEMOGLOBIN 31 pg (27-31); MEAN CORPUSCULAR HGB CONC 32 % (32-36); MEAN CORPUSCULAR VOLUME 97 fL (79.0-98.0); MONOCYTES # (AUTO) 0.6 K/uL (0.0-1.0); MONOCYTES % (AUTO) 4.5 % (1.7-9.3); NEUTROPHILS # (AUTO) 11.1 K/uL (1.8-7.7); NEUTROPHILS % (AUTO) 82.3 % (40.0-70.0); PLATELET COUNT (AUTO) 423 K/uL (130-430); RED BLOOD CELL COUNT(AUTO) 4.07 MIL/uL (4.2-6.2); RED CELL DISTRIBUTION WIDTH 18.2 % (9.0-15.0); WHITE BLOOD COUNT (AUTO) 13.5 K/uL (4.8-10.8)
[2024-08-05 07:50] LABS: POTASSIUM 3.1 mmol/L (3.5-5.1)
[2024-08-05 07:51] LABS: CALCIUM 11.5 mg/dL (8.4-11.0); CREATININE 4.15 mg/dL (0.55-1.30)
[2024-08-05] MEDS ORDERED: PIPERACILLIN/TAZO 3.375 GM in D5W 50 ML IV SCH (09:00)
[2024-08-05] MEDS ORDERED: levETIRAcetam 500 MG IV PREMIX 100 ML IV SCH (09:00)
[2024-08-05] MEDS: PANTOPRAZOLE SODIUM 40 MG in NS 50 ML IVP SCH (09:03)
[2024-08-05] MEDS: levETIRAcetam 500 MG IV PREMIX 100 ML IV SCH (09:03)
[2024-08-05] MEDS: PIPERACILLIN/TAZOBACTAM 2.25 GM/ D5W 50 ML IV SCH (09:04)
[2024-08-05] MEDS: NOREPINEPHRINE BITARTRATE 4 MG in D5W 246 ML IV PRN (09:10)
[2024-08-05] MEDS: POTASSIUM CHLORIDE 20 MEQ in NS 250 ML IV ONE (11:37)
[2024-08-05] MEDS ORDERED: LORazepam 2 MG/ML VIAL IVP PRN ×2 (13:15)
[2024-08-05] MEDS ORDERED: MORPHINE 2 MG/ML INJ. SYRINGE IVP PRN (13:15)
[2024-08-05] MEDS ORDERED: NALOXONE HCL 0.4 MG/ML AMP (NARCAN) IVP PRN (13:15)
[2024-08-05] MEDS: ALBUMIN HUMAN 25% 50 ML IV SCH (13:32)
[2024-08-05] MEDS: INSULIN ASPART 100 UNITS/ML, 10 ML VIAL (NovoLOG) SUBCUT PRN (13:43)
[2024-08-05] MEDS: NOREPINEPHRINE BITARTRATE 8 MG in D5W 242 ML IV PRN (15:53)
[2024-08-05] MEDS: INSULIN LISPRO SLIDING SCALE 100 UNITS/ML, 3 ML VIAL (humaLOG) SUBCUT PRN (17:26)
[2024-08-06] VITALS (35 sets, daily range): BP systolic 99–139; PULSE 72–119; RESP 14–20; TEMP 97.6–99.3; O2SAT 95–100
[2024-08-06 06:51] LABS: BASOPHILS % (AUTO) 0.4 % (0.0-2.0); EOSINOPHILS % (AUTO) 9.2 % (0.0-4.0); HEMATOCRIT 29.5 % (36-54); HEMOGLOBIN 9.9 g/dL (14.0-18.0); LYMPHOCYTES # (AUTO) 1.3 K/uL (1.0-5.5); MEAN CORPUSCULAR HEMOGLOBIN 32 pg (27-31); MEAN CORPUSCULAR HGB CONC 34 % (32-36); MEAN CORPUSCULAR VOLUME 94 fL (79.0-98.0); MONOCYTES # (AUTO) 0.6 K/uL (0.0-1.0); MONOCYTES % (AUTO) 5.3 % (1.7-9.3); NEUTROPHILS # (AUTO) 7.7 K/uL (1.8-7.7); NEUTROPHILS % (AUTO) 73.1 % (40.0-70.0); PLATELET COUNT (AUTO) 248 K/uL (130-430); RED BLOOD CELL COUNT(AUTO) 3.15 MIL/uL (4.2-6.2); RED CELL DISTRIBUTION WIDTH 17.4 % (9.0-15.0); WHITE BLOOD COUNT (AUTO) 10.6 K/uL (4.8-10.8)
[2024-08-06 07:01] LABS: ALBUMIN 3.7 g/dL (3.4-4.8); CALCIUM 9.8 mg/dL (8.4-11.0); CREATININE 2.64 mg/dL (0.55-1.30); POTASSIUM 3.1 mmol/L (3.5-5.1); TOTAL BILIRUBIN 1.1 mg/dL (0.0-1.0); TOTAL PROTEIN, SERUM 8.5 g/dL (6.4-8.3); VANCOMYCIN,RANDOM 13.8 ug/mL (20.0-30.0)
[2024-08-06] MEDS ORDERED: METOCLOPRAMIDE HCL 10 MG/10 ML UDC GT PRN (10:45)
[2024-08-06] MEDS ORDERED: ACETAMINOPHEN 650 MG/20.3 ML UDC GT PRN (10:45)
[2024-08-06] MEDS ORDERED: ONDANSETRON 4 MG ODT TAB TL PRN (10:45)
[2024-08-06] MEDS ORDERED: ALBUTEROL SULFATE 0.083% 2.5 MG/3 ML VIAL.NEB INH PRN ×2 (10:45)
[2024-08-06] MEDS ORDERED: traMADol HCL HCL 50 MG TABLET (ULTRAM) PO PRN (10:45)
[2024-08-06] MEDS ORDERED: INSULIN REGULAR, HUMAN 100 UNITS/ML, 3 ML VIAL SUBCUT PRN (10:45)
[2024-08-06] MEDS ORDERED: ALBUTEROL MDI INHALATION 8 GM INH INH PRN (10:45)
[2024-08-06 11:59] LABS: PROTHROMBIN TIME 10.5 SECS (9.5-12.5)
[2024-08-06] MEDS: KCL 20 mEq in 100 mL (PREMIX) 100 ML IV ONE (13:14)
[2024-08-06] MEDS: VANCOMYCIN HCL 750 MG in NS 250 ML IV ONE (13:15)
[2024-08-06] MEDS: MIDODRINE HCL 5 MG TABLET (PROAMATINE) GT SCH (13:17)
[2024-08-06] MEDS ORDERED: DEXTROSE 50% JECT 50 ML DISP.SYRIN IVP PRN (15:00)
[2024-08-06] MEDS ORDERED: MIDODRINE HCL 5 MG TABLET (PROAMATINE) PO SCH (15:00)
[2024-08-06] MEDS ORDERED: *PPN PER PHARMACY XX PRN (15:00)
[2024-08-06] MEDS: INSULIN REGULAR, HUMAN 100 UNITS/ML, 3 ML VIAL (humuLIN R) SUBCUT PRN (18:03)
[2024-08-06] MEDS ORDERED: ONDANSETRON HCL 4 MG/2 ML VIAL IVP PRN (18:15)
[2024-08-06] MEDS: CHLORHEXIDINE GLUC 0.12% 15 ML MOUTHWASH UDC MM SCH (20:40)
[2024-08-06] MEDS: INSULIN GLARGINE 100 UNITS/ML, 10 ML VIAL SUBCUT SCH (20:43)
[2024-08-06] MEDS ORDERED: FERROUS SULFATE 300 MG/5 ML UDC GT SCH (21:00)
[2024-08-06] MEDS ORDERED: FAMOTIDINE 20 MG TABLET GT SCH (21:00)
[2024-08-06] MEDS ORDERED: RIVAROXABAN 10 MG TABLET GT SCH (21:00)
[2024-08-06] MEDS ORDERED: ATORVASTATIN 20 MG TABLET GT SCH (21:00)
[2024-08-06] MEDS ORDERED: levETIRAcetam 500 MG TABLET PO SCH (21:00)
[2024-08-06] MEDS ORDERED: DOCUSATE SODIUM 100 MG CAPSULE PO SCH (21:00)
[2024-08-06] MEDS ORDERED: LevETIRAcetam 500 MG/5 ML UDC ORAL LIQUID GT SCH (21:00)
[2024-08-06] MEDS ORDERED: clonazePAM 0.5 MG TABLET PO SCH (21:00)
[2024-08-07] VITALS (37 sets, daily range): BP systolic 100–164; PULSE 56–90; RESP 11–22; TEMP 97.5–99.3; O2SAT 88–100
[2024-08-07 06:48] LABS: BASOPHILS # (AUTO) 0.1 K/uL (0.0-0.2); BASOPHILS % (AUTO) 0.6 % (0.0-2.0); EOSINOPHILS # (AUTO) 1.8 K/uL (0.0-0.4); EOSINOPHILS % (AUTO) 12.9 % (0.0-4.0); HEMATOCRIT 29.1 % (36-54); HEMOGLOBIN 10.1 g/dL (14.0-18.0); LYMPHOCYTES # (AUTO) 2.3 K/uL (1.0-5.5); LYMPHOCYTES % (AUTO) 16.7 % (20.5-51.5); MEAN CORPUSCULAR HEMOGLOBIN 33 pg (27-31); MEAN CORPUSCULAR HGB CONC 35 % (32-36); MEAN CORPUSCULAR VOLUME 94 fL (79.0-98.0); MONOCYTES # (AUTO) 0.7 K/uL (0.0-1.0); MONOCYTES % (AUTO) 5.2 % (1.7-9.3); PLATELET COUNT (AUTO) 283 K/uL (130-430); RED BLOOD CELL COUNT(AUTO) 3.09 MIL/uL (4.2-6.2); RED CELL DISTRIBUTION WIDTH 17.2 % (9.0-15.0)
[2024-08-07 07:03] LABS: ALBUMIN 3.4 g/dL (3.4-4.8); CREATININE 3.72 mg/dL (0.55-1.30); PHOSPHORUS 2.3 mg/dL (2.7-4.5); POTASSIUM 3.8 mmol/L (3.5-5.1); TOTAL PROTEIN, SERUM 8.3 g/dL (6.4-8.3)
[2024-08-07] MEDS ORDERED: ASPIRIN 81 MG TABLET(ECOTRIN) GT SCH (09:00)
[2024-08-07] MEDS ORDERED: ASCORBIC ACID 500 MG TABLET GT SCH (09:00)
[2024-08-07] MEDS ORDERED: MULTIVITAMINS TAB 1 TABLET GT SCH (09:00)
[2024-08-07 12:04] LABS: THYROID STIMULATING HORMONE 2.21 uIu/mL (0.34-4.82)
[2024-08-07] MEDS: SODIUM CHLORIDE IV SCH (21:12)
[2024-08-07] MEDS: POTASSIUM CHLORIDE IV SCH (21:12)
[2024-08-07] MEDS: TPN PERIPHERAL IV SCH (21:12)
[2024-08-07] MEDS: [UNRECOGNIZED DRUG - OTHER] IV SCH (21:12)
[2024-08-08] VITALS (37 sets, daily range): BP systolic 83–155; PULSE 66–105; RESP 11–21; TEMP 97.5–98.1; O2SAT 98–100
[2024-08-08] MEDS: INSULIN REGULAR, HUMAN 100 UNITS/ML, 3 ML VIAL (humuLIN R) SUBCUT PRN (00:16)
[2024-08-08 06:48] LABS: BASOPHILS % (AUTO) 0.4 % (0.0-2.0); EOSINOPHILS # (AUTO) 0.9 K/uL (0.0-0.4); HEMATOCRIT 27.2 % (36-54); HEMOGLOBIN 9.1 g/dL (14.0-18.0); LYMPHOCYTES % (AUTO) 15.3 % (20.5-51.5); MEAN CORPUSCULAR HEMOGLOBIN 32 pg (27-31); MEAN CORPUSCULAR HGB CONC 34 % (32-36); MEAN CORPUSCULAR VOLUME 94 fL (79.0-98.0); MONOCYTES # (AUTO) 0.4 K/uL (0.0-1.0); MONOCYTES % (AUTO) 5.3 % (1.7-9.3); NEUTROPHILS # (AUTO) 4.5 K/uL (1.8-7.7); PLATELET COUNT (AUTO) 163 K/uL (130-430); RED BLOOD CELL COUNT(AUTO) 2.89 MIL/uL (4.2-6.2); RED CELL DISTRIBUTION WIDTH 17.2 % (9.0-15.0); WHITE BLOOD COUNT (AUTO) 6.8 K/uL (4.8-10.8)
[2024-08-08 07:56] LABS: NEUTROPHILS % (AUTO) 64.6 % (40.0-70.0)
[2024-08-08 07:57] LABS: ALBUMIN 2.9 g/dL (3.4-4.8); CALCIUM 9.6 mg/dL (8.4-11.0); CREATININE 4.2 mg/dL (0.55-1.30); PHOSPHORUS 3.4 mg/dL (2.7-4.5); POTASSIUM 3.4 mmol/L (3.5-5.1); TOTAL BILIRUBIN 0.7 mg/dL (0.0-1.0); TOTAL PROTEIN, SERUM 7.6 g/dL (6.4-8.3); VANCOMYCIN,RANDOM 20.5 ug/mL (20.0-30.0)
[2024-08-08] MEDS: BALSAM PERU/CASTOR OIL 56.7 GM OINT...G. TP SCH (09:00)
[2024-08-08] MEDS ORDERED: D5/0.45 NS 1,000 ML IV SCH (10:00)
[2024-08-08] MEDS ORDERED: *HEPARIN PER PHARMACY XX ONE (14:30)
[2024-08-08] MEDS: HEPARIN SODIUM,PORCINE 5,000 UNITS/ML VIAL IVP ONE (15:44)
[2024-08-08] MEDS: PANTOPRAZOLE SODIUM 40 MG in NS 50 ML IV SCH (15:48)
[2024-08-08] MEDS: [UNRECOGNIZED DRUG - OTHER] IV SCH (20:33)
[2024-08-08] MEDS: TPN PERIPHERAL IV SCH (20:33)
[2024-08-08] MEDS: SODIUM CHLORIDE IV SCH (20:33)
[2024-08-08] MEDS: POTASSIUM ACETATE IV SCH (20:33)
[2024-08-08 21:18] LABS: ABG O2 SAT% ESTIMATE 98.5 % (94.0-98.0); BLOOD GAS BASE EXCESS 2.5 mmol/L (-2.0-3.0); BLOOD GAS HCO3 24.8 mmol/L (21.0-28.0); BLOOD GAS PCO2 30.4 mmHg (35.0-48.0); BLOOD GAS PH 7.529 (7.350-7.450); BLOOD GAS PO2 108.7 mmHg (83.0-108.0)
[2024-08-08 21:19] LABS: ALLEN'S TEST Y (P)
[2024-08-09] VITALS (34 sets, daily range): BP systolic 82–142; PULSE 71–104; RESP 13–20; TEMP 96.6–98.5; O2SAT 78–100
[2024-08-09 06:47] LABS: BASOPHILS % (AUTO) 0.5 % (0.0-2.0); EOSINOPHILS # (AUTO) 0.6 K/uL (0.0-0.4); EOSINOPHILS % (AUTO) 7.3 % (0.0-4.0); HEMATOCRIT 27.8 % (36-54); HEMOGLOBIN 9.3 g/dL (14.0-18.0); LYMPHOCYTES % (AUTO) 13.4 % (20.5-51.5); MEAN CORPUSCULAR HEMOGLOBIN 32 pg (27-31); MEAN CORPUSCULAR HGB CONC 33 % (32-36); MEAN CORPUSCULAR VOLUME 95 fL (79.0-98.0); MONOCYTES # (AUTO) 0.5 K/uL (0.0-1.0); MONOCYTES % (AUTO) 6.5 % (1.7-9.3); NEUTROPHILS # (AUTO) 5.6 K/uL (1.8-7.7); NEUTROPHILS % (AUTO) 72.3 % (40.0-70.0); PLATELET COUNT (AUTO) 186 K/uL (130-430); RED BLOOD CELL COUNT(AUTO) 2.93 MIL/uL (4.2-6.2); WHITE BLOOD COUNT (AUTO) 7.8 K/uL (4.8-10.8)
[2024-08-09 07:09] LABS: CALCIUM 9.2 mg/dL (8.4-11.0); CREATININE 2.88 mg/dL (0.55-1.30); PHOSPHORUS 2.3 mg/dL (2.7-4.5); POTASSIUM 3.1 mmol/L (3.5-5.1); TOTAL BILIRUBIN 0.7 mg/dL (0.0-1.0); TOTAL PROTEIN, SERUM 7.7 g/dL (6.4-8.3); VANCOMYCIN,RANDOM 16.4 ug/mL (20.0-30.0)
[2024-08-09] MEDS: POTASSIUM CHLORIDE 40 MEQ in NS 250 ML IV ONE (13:03)
[2024-08-09] MEDS: TPN PERIPHERAL 0.0001 ML, SODIUM CHLORIDE 40 MEQ, POTASSIUM CHLORIDE 20 MEQ, K PHOS 9 M... IV SCH (21:30)
[2024-08-10] VITALS (17 sets, daily range): BP systolic 109–156; PULSE 48–103; RESP 16–21; TEMP 96.5–98.4; O2SAT 100
[2024-08-10 07:07] LABS: BASOPHILS % (AUTO) 0.5 % (0.0-2.0); EOSINOPHILS # (AUTO) 0.6 K/uL (0.0-0.4); EOSINOPHILS % (AUTO) 8.1 % (0.0-4.0); HEMATOCRIT 30.2 % (36-54); HEMOGLOBIN 10.2 g/dL (14.0-18.0); LYMPHOCYTES # (AUTO) 1.4 K/uL (1.0-5.5); LYMPHOCYTES % (AUTO) 19.7 % (20.5-51.5); MEAN CORPUSCULAR HEMOGLOBIN 32 pg (27-31); MEAN CORPUSCULAR HGB CONC 34 % (32-36); MEAN CORPUSCULAR VOLUME 94 fL (79.0-98.0); MONOCYTES # (AUTO) 0.5 K/uL (0.0-1.0); MONOCYTES % (AUTO) 6.7 % (1.7-9.3); NEUTROPHILS # (AUTO) 4.8 K/uL (1.8-7.7); PLATELET COUNT (AUTO) 184 K/uL (130-430); RED BLOOD CELL COUNT(AUTO) 3.22 MIL/uL (4.2-6.2); RED CELL DISTRIBUTION WIDTH 17.3 % (9.0-15.0); WHITE BLOOD COUNT (AUTO) 7.4 K/uL (4.8-10.8)
[2024-08-10 07:40] LABS: CALCIUM 9.5 mg/dL (8.4-11.0); CREATININE 3.8 mg/dL (0.55-1.30); POTASSIUM 3.8 mmol/L (3.5-5.1); TOTAL BILIRUBIN 0.7 mg/dL (0.0-1.0); TOTAL PROTEIN, SERUM 7.9 g/dL (6.4-8.3); VANCOMYCIN,RANDOM 14.5 ug/mL (20.0-30.0)
[2024-08-10] MEDS: EPOETIN ALFA 3,000 UNITS/ML VIAL SUBCUT SCH (08:58)
[2024-08-10] MEDS: CEFEPIME 2 GM in D5W 100 ML IV SCH (11:17)
[2024-08-10] MEDS: TPN PERIPHERAL 0.0001 ML, SODIUM CHLORIDE 40 MEQ, POTASSIUM CHLORIDE 20 MEQ, K PHOS 9 M... IV SCH (20:26)
[2024-08-11] VITALS (16 sets, daily range): BP systolic 104–142; PULSE 69–95; RESP 16–20; TEMP 97.2–98.8; O2SAT 95–100
[2024-08-11 08:02] LABS: BASOPHILS # (AUTO) 0.1 K/uL (0.0-0.2); BASOPHILS % (AUTO) 0.7 % (0.0-2.0); EOSINOPHILS # (AUTO) 0.6 K/uL (0.0-0.4); EOSINOPHILS % (AUTO) 7.5 % (0.0-4.0); HEMATOCRIT 31.8 % (36-54); HEMOGLOBIN 10.4 g/dL (14.0-18.0); LYMPHOCYTES # (AUTO) 1.3 K/uL (1.0-5.5); LYMPHOCYTES % (AUTO) 15.1 % (20.5-51.5); MEAN CORPUSCULAR HEMOGLOBIN 31 pg (27-31); MEAN CORPUSCULAR HGB CONC 33 % (32-36); MEAN CORPUSCULAR VOLUME 95 fL (79.0-98.0); MONOCYTES # (AUTO) 0.6 K/uL (0.0-1.0); MONOCYTES % (AUTO) 6.6 % (1.7-9.3); NEUTROPHILS % (AUTO) 70.1 % (40.0-70.0); PLATELET COUNT (AUTO) 214 K/uL (130-430); RED BLOOD CELL COUNT(AUTO) 3.35 MIL/uL (4.2-6.2); RED CELL DISTRIBUTION WIDTH 17.7 % (9.0-15.0); WHITE BLOOD COUNT (AUTO) 8.5 K/uL (4.8-10.8)
[2024-08-11 08:23] LABS: CALCIUM 9.7 mg/dL (8.4-11.0); CREATININE 2.9 mg/dL (0.55-1.30); PHOSPHORUS 2.6 mg/dL (2.7-4.5); POTASSIUM 4.3 mmol/L (3.5-5.1); TOTAL BILIRUBIN 0.7 mg/dL (0.0-1.0)
[2024-08-11] MEDS ORDERED: VANCOMYCIN HCL 750 MG in NS 250 ML IV SCH (15:00)
[2024-08-11] MEDS ORDERED: VANCOMYCIN HCL 750 MG in NS 250 ML IV ONE (15:00)
[2024-08-11] MEDS: VANCOMYCIN HCL 750 MG in NS 250 ML IV ONE (16:11)
[2024-08-11] MEDS: POTASSIUM CHLORIDE IV SCH (22:55)
[2024-08-11] MEDS: SODIUM CHLORIDE IV SCH (22:55)
[2024-08-11] MEDS: [UNRECOGNIZED DRUG - OTHER] IV SCH (22:55)
[2024-08-11] MEDS: TPN PERIPHERAL IV SCH (22:55)
[2024-08-12] VITALS (15 sets, daily range): BP systolic 120–149; PULSE 67–104; RESP 16–18; TEMP 97.1–98.2; O2SAT 100
[2024-08-12 08:39] LABS: BASOPHILS # (AUTO) 0.1 K/uL (0.0-0.2); BASOPHILS % (AUTO) 0.6 % (0.0-2.0); EOSINOPHILS # (AUTO) 0.8 K/uL (0.0-0.4); EOSINOPHILS % (AUTO) 8.6 % (0.0-4.0); HEMATOCRIT 29.5 % (36-54); HEMOGLOBIN 9.9 g/dL (14.0-18.0); LYMPHOCYTES # (AUTO) 1.5 K/uL (1.0-5.5); LYMPHOCYTES % (AUTO) 16.6 % (20.5-51.5); MEAN CORPUSCULAR HEMOGLOBIN 32 pg (27-31); MEAN CORPUSCULAR HGB CONC 33 % (32-36); MEAN CORPUSCULAR VOLUME 95 fL (79.0-98.0); MONOCYTES # (AUTO) 0.6 K/uL (0.0-1.0); MONOCYTES % (AUTO) 6.4 % (1.7-9.3); NEUTROPHILS % (AUTO) 67.8 % (40.0-70.0); PLATELET COUNT (AUTO) 190 K/uL (130-430); RED BLOOD CELL COUNT(AUTO) 3.11 MIL/uL (4.2-6.2); RED CELL DISTRIBUTION WIDTH 17.7 % (9.0-15.0); WHITE BLOOD COUNT (AUTO) 8.9 K/uL (4.8-10.8)
[2024-08-12 08:49] LABS: ALBUMIN 2.9 g/dL (3.4-4.8); CREATININE 3.8 mg/dL (0.55-1.30); PHOSPHORUS 3.8 mg/dL (2.7-4.5); TOTAL BILIRUBIN 0.8 mg/dL (0.0-1.0); TOTAL PROTEIN, SERUM 7.9 g/dL (6.4-8.3); VANCOMYCIN,RANDOM 22.4 ug/mL (20.0-30.0)
[2024-08-12] MEDS ORDERED: [UNRECOGNIZED DRUG - OTHER] IV SCH (10:45)
[2024-08-12] MEDS ORDERED: SODIUM CHLORIDE IV SCH (10:45)
[2024-08-12] MEDS ORDERED: TPN PERIPHERAL IV SCH (10:45)
[2024-08-12] MEDS ORDERED: POTASSIUM CHLORIDE IV SCH (10:45)
[2024-08-12] MEDS: VANCOMYCIN HCL 750 MG in NS 250 ML IV SCH (15:40)
[2024-08-12] MEDS: POTASSIUM CHLORIDE IV SCH (23:24)
[2024-08-12] MEDS: TPN PERIPHERAL IV SCH (23:24)
[2024-08-12] MEDS: SODIUM CHLORIDE IV SCH (23:24)
[2024-08-12] MEDS: [UNRECOGNIZED DRUG - OTHER] IV SCH (23:24)
[2024-08-13] VITALS (19 sets, daily range): BP systolic 117–131; PULSE 74–107; RESP 16–22; TEMP 97–98.6; O2SAT 97–100
[2024-08-13 08:33] LABS: BASOPHILS # (AUTO) 0.1 K/uL (0.0-0.2); BASOPHILS % (AUTO) 0.7 % (0.0-2.0); EOSINOPHILS # (AUTO) 0.7 K/uL (0.0-0.4); EOSINOPHILS % (AUTO) 6.6 % (0.0-4.0); HEMATOCRIT 31.4 % (36-54); HEMOGLOBIN 10.4 g/dL (14.0-18.0); LYMPHOCYTES # (AUTO) 1.7 K/uL (1.0-5.5); LYMPHOCYTES % (AUTO) 15.7 % (20.5-51.5); MEAN CORPUSCULAR HEMOGLOBIN 32 pg (27-31); MEAN CORPUSCULAR HGB CONC 33 % (32-36); MEAN CORPUSCULAR VOLUME 96 fL (79.0-98.0); MONOCYTES # (AUTO) 0.7 K/uL (0.0-1.0); MONOCYTES % (AUTO) 6.5 % (1.7-9.3); NEUTROPHILS # (AUTO) 7.5 K/uL (1.8-7.7); NEUTROPHILS % (AUTO) 70.5 % (40.0-70.0); PLATELET COUNT (AUTO) 201 K/uL (130-430); RED BLOOD CELL COUNT(AUTO) 3.29 MIL/uL (4.2-6.2); RED CELL DISTRIBUTION WIDTH 17.4 % (9.0-15.0); WHITE BLOOD COUNT (AUTO) 10.7 K/uL (4.8-10.8)
[2024-08-13 09:08] LABS: ALBUMIN 2.9 g/dL (3.4-4.8); CALCIUM 10.2 mg/dL (8.4-11.0); CREATININE 3.05 mg/dL (0.55-1.30); POTASSIUM 4.2 mmol/L (3.5-5.1); TOTAL BILIRUBIN 0.9 mg/dL (0.0-1.0); TOTAL PROTEIN, SERUM 8.4 g/dL (6.4-8.3)
[2024-08-13] MEDS: [UNRECOGNIZED DRUG - OTHER] IV SCH (22:04)
[2024-08-13] MEDS: POTASSIUM CHLORIDE IV SCH (22:04)
[2024-08-13] MEDS: TPN PERIPHERAL IV SCH (22:04)
[2024-08-13] MEDS: SODIUM CHLORIDE IV SCH (22:04)
[2024-08-14] VITALS (20 sets, daily range): BP systolic 100–144; PULSE 68–132; RESP 16–21; TEMP 96.7–98.6; O2SAT 96–100
[2024-08-14 07:28] LABS: BASOPHILS # (AUTO) 0.1 K/uL (0.0-0.2); BASOPHILS % (AUTO) 0.6 % (0.0-2.0); EOSINOPHILS # (AUTO) 0.8 K/uL (0.0-0.4); EOSINOPHILS % (AUTO) 8.2 % (0.0-4.0); HEMATOCRIT 31.2 % (36-54); HEMOGLOBIN 10.3 g/dL (14.0-18.0); LYMPHOCYTES # (AUTO) 1.4 K/uL (1.0-5.5); LYMPHOCYTES % (AUTO) 14.3 % (20.5-51.5); MEAN CORPUSCULAR HEMOGLOBIN 32 pg (27-31); MEAN CORPUSCULAR HGB CONC 33 % (32-36); MEAN CORPUSCULAR VOLUME 96 fL (79.0-98.0); MONOCYTES # (AUTO) 0.5 K/uL (0.0-1.0); MONOCYTES % (AUTO) 5.2 % (1.7-9.3); NEUTROPHILS # (AUTO) 7.2 K/uL (1.8-7.7); NEUTROPHILS % (AUTO) 71.7 % (40.0-70.0); PLATELET COUNT (AUTO) 211 K/uL (130-430); RED BLOOD CELL COUNT(AUTO) 3.24 MIL/uL (4.2-6.2); RED CELL DISTRIBUTION WIDTH 18.2 % (9.0-15.0)
[2024-08-14 07:46] LABS: PHOSPHORUS 4.1 mg/dL (2.7-4.5)
[2024-08-14] MEDS ORDERED: GASTROGRAFIN 120 ML ONE (09:43)
[2024-08-14] MEDS: TPN PERIPHERAL 0.0001 ML, SODIUM CHLORIDE 40 MEQ, POTASSIUM CHLORIDE 20 MEQ, K PHOS 9 M... IV SCH (21:00)
[2024-08-15] VITALS (20 sets, daily range): BP systolic 105–124; PULSE 73–95; RESP 16–20; TEMP 96.4–98.1; O2SAT 97–100
[2024-08-15 07:26] LABS: ALBUMIN 2.7 g/dL (3.4-4.8); CALCIUM 10.5 mg/dL (8.4-11.0); PHOSPHORUS 4.9 mg/dL (2.7-4.5); POTASSIUM 4.2 mmol/L (3.5-5.1); TOTAL BILIRUBIN 0.6 mg/dL (0.0-1.0)
[2024-08-15 07:42] LABS: CREATININE 4.42 mg/dL (0.55-1.30)
[2024-08-15] MEDS: HEPARIN SODIUM,PORCINE 5,000 UNITS/ML VIAL MC ONE (13:01)
[2024-08-15] MEDS: EPOETIN ALFA 3,000 UNITS/ML VIAL SUBCUT SCH (17:37)
[2024-08-15] MEDS: DOXYCYCLINE HYCLATE 100 MG TABLET PO SCH (21:39)
[2024-08-16] VITALS (23 sets, daily range): BP systolic 70–134; PULSE 62–83; RESP 16–18; TEMP 96.6–97.6; O2SAT 99–100
[2024-08-16 08:24] LABS: ALBUMIN 2.6 g/dL (3.4-4.8); CALCIUM 9.9 mg/dL (8.4-11.0); CREATININE 3.04 mg/dL (0.55-1.30); PHOSPHORUS 3.3 mg/dL (2.7-4.5); POTASSIUM 4.1 mmol/L (3.5-5.1); TOTAL BILIRUBIN 0.5 mg/dL (0.0-1.0)
[2024-08-16] MEDS: PANTOPRAZOLE SODIUM 40 MG/VIAL (PROTONIX) ONE ×2 (09:05→23:16)
[2024-08-16] MEDS: ALBUMIN HUMAN 25% 100 ML IV ONE ×2 (22:38)
[2024-08-17] VITALS (20 sets, daily range): BP systolic 94–155; PULSE 59–95; RESP 16–20; TEMP 97.5–99; O2SAT 97–99
[2024-08-17] MEDS: PANTOPRAZOLE SODIUM 40 MG/VIAL (PROTONIX) ONE ×2 (01:20→06:12)
[2024-08-17 07:14] LABS: ALBUMIN 3.3 g/dL (3.4-4.8); CALCIUM 10.3 mg/dL (8.4-11.0); CREATININE 3.74 mg/dL (0.55-1.30); PHOSPHORUS 4.2 mg/dL (2.7-4.5); POTASSIUM 3.6 mmol/L (3.5-5.1); TOTAL BILIRUBIN 0.5 mg/dL (0.0-1.0)
== END 2024-08-18 23:00 | DRG 870 ==
LOC: SED 20:26 → SIC 08-05 04:09 → STU 08-09 18:50 → UNDODISIN 08-17 23:00
PROVIDERS: ADMIT Internal Medicine; ATTEND Family Medicine
PROC: 5A1955Z Respiratory Ventilation, Greater than 96 Consecutive Hours (ICD-10-PCS; principal; 2024-08-05)
PROC: 5A1D70Z Performance of Urinary Filtration, Intermittent, Less than 6 Hours Per Day (ICD-10-PCS; 2024-08-05)
PROC: 0D9670Z Drainage of Stomach with Drainage Device, Via Natural or Artificial Opening (ICD-10-PCS; 2024-08-06)
PROC: 5A1D70Z Performance of Urinary Filtration, Intermittent, Less than 6 Hours Per Day (ICD-10-PCS; 2024-08-08)
PROC: 5A1D70Z Performance of Urinary Filtration, Intermittent, Less than 6 Hours Per Day (ICD-10-PCS; 2024-08-10)
PROC: 5A1D70Z Performance of Urinary Filtration, Intermittent, Less than 6 Hours Per Day (ICD-10-PCS; 2024-08-13)
PROC: 0DP6XUZ Removal of Feeding Device from Stomach, External Approach (ICD-10-PCS; 2024-08-14)
PROC: 0DH63UZ Insertion of Feeding Device into Stomach, Percutaneous Approach (ICD-10-PCS; 2024-08-14)
PROC: 5A1D70Z Performance of Urinary Filtration, Intermittent, Less than 6 Hours Per Day (ICD-10-PCS; 2024-08-15)
PROC: 5A1D70Z Performance of Urinary Filtration, Intermittent, Less than 6 Hours Per Day (ICD-10-PCS; 2024-08-17)
DX: A41.9 Sepsis, unspecified organism (principal); L89.154 Pressure ulcer of sacral region, stage 4; N18.6 End stage renal disease; R65.21 Severe sepsis with septic shock; R57.8 Other shock; R57.1 Hypovolemic shock; K94.23 Gastrostomy malfunction; I12.0 Hypertensive chronic kidney disease with stage 5 chronic kidney disease or end stage renal disease; G93.40 Encephalopathy, unspecified; M46.27 Osteomyelitis of vertebra, lumbosacral region; K92.2 Gastrointestinal hemorrhage, unspecified; J96.10 Chronic respiratory failure, unspecified whether with hypoxia or hypercapnia; E11.22 Type 2 diabetes mellitus with diabetic chronic kidney disease; D63.8 Anemia in other chronic diseases classified elsewhere; G40.909 Epilepsy, unspecified, not intractable, without status epilepticus; E78.5 Hyperlipidemia, unspecified; I48.0 Paroxysmal atrial fibrillation; E11.69 Type 2 diabetes mellitus with other specified complication; N20.0 Calculus of kidney; F32.9 Major depressive disorder, single episode, unspecified; M46.47 Discitis, unspecified, lumbosacral region; R13.10 Dysphagia, unspecified; D69.6 Thrombocytopenia, unspecified; Z79.899 Other long term (current) drug therapy; Z86.73 Personal history of transient ischemic attack (TIA), and cerebral infarction without residual deficits; Z89.511 Acquired absence of right leg below knee; Y92.89 Other specified places as the place of occurrence of the external cause; Y83.8 Other surgical procedures as the cause of abnormal reaction of the patient, or of later complication, without mention of misadventure at the time of the procedure
CPT/HCPCS: 36415; 36600; 71045; 74018; 74240; 80048; 80053; 80061; 80202; 82542; 82803; 82948; 83735; 83880; 84100; 84443; 84478; 84484; 85025; 85610; 85651; 85730; 87040; 87070; 87081; 87186; 87205; 90935; 90937; 93005; 93306; 94002; 94003; 94070; 94760; 99291; C1751; G0378; J0692; J0885; J1644; J1815; J1953; J2470; J2543; J3370; J3475; J3480; J7030; J7040; J7050; J7060; J7131; P9046; Q9963